=== PATIENT | male | born 1955 | race Caucasian/White ===

== ENCOUNTER 2023-06-27 12:45 | Inpatient (IN) ==
--- NOTE | 2023-06-25 09:22 | Anesthesiology Consultation ---
Date of Service June 25, 2023 Assessment & Plan (1) Encounter for pre-operative examination: Plan - [facility] discharge summary 05/24/23: "...complaints of right upper extremity weakness, left eye ptosis, right facial droop with slurring...Head CT and CT brain perfusion showed no acute findings. CTA head and neck showed persistent circulation on the left but otherwise unremarkable...MRI showed diffusion restriction w/ ADC dropout and T2 signal consistent w/ acute infarct of L thalamus...neurology evaluated patient, recommended starting DAPT...discharged to home in stable condition..." - left sided Medtronic pacemaker. Medtronic reps have advised they do not come in person for contralateral procedures. This was previously discussed with Dr. Correa who advised this is fine given that device is contralateral. - Case discussed in detail with Dr. Collins who advised patient can proceed at [facility] at planned interval from stroke given indication for procedure. - [facility] stroke and neurointervention 06/19/23: "...may hold Plavix for 5- 7 days prior to procedure, then restart CATARINO post-operatively...increased stroke risk while off antiplatelet medication." - PCP office note 06/13/23: "...hospital stay for acute thalamic CVA and right shoulder pain...residual left ptosis and facial droop...residual right sided weakness...Plavix responsiveness test and this showed his Plavix to be a little bit too strong...every other day...oxycodone for help with the shoulder pain..." - cardiology office visit 08/02/22: "...SSS/PPM and HTN...has done well since the last visit...CAD: previous stents no symptoms of CP and exercising...update echo for EF..." (cardiology office re-faxed 07/2022 note per PAT sales secretary in response to request for most recent office note). - Per assessment nurse practitioner on 06/25/2023: No known infectious disease contacts, current infectious disease symptoms in past 10 days or COVID positive test result in the past 90 days. Chart Review Chart Review: Acceptable Risk for Surgery and Patient NOT seen in Pre Admission Testing History Surgery Operation Date: 06/27/23 15:10 Proposed Procedures p Right Shoulder Incision and Drainage Retention of Implant, Possible Polyethlene and/or Glenoid Sphere Exchange - Paulino Licea MD Height/Weight Height: 5 ft 6.5 in Weight: 81.193 kg Allergies Allergy/AdvReac Type Severity Reaction Status Date / Time duloxetine [From Cymbalta] Allergy Intermediate Hives Verified 06/25/23 08:30 pregabalin [From Lyrica] Allergy Intermediate Hives Verified 06/25/23 08:30 morphine AdvReac Intermediate hallucinate Verified 06/25/23 08:30 and doesn't work Febaing-YKX-GnY Reductase AdvReac joint ache Verified 06/25/23 08:30 Inhibitor Medications Home Medications Medication Instructions Recorded Confirmed Last Taken cholecalciferol (vitamin D3) 50 50 mcg PO BID 03/29/23 06/27/23 06/26/23 20:00 mcg (2,000 unit) capsule (Vitamin D3) diltiazem HCl 180 mg capsule,24 180 mg PO QAM 03/29/23 06/27/23 06/26/23 08:00 hr,extended release famotidine 20 mg tablet 20 mg PO BID 03/29/23 06/27/23 06/27/23 08:00 magnesium 500 mg tablet 500 mg PO HS 03/29/23 06/27/23 06/26/23 08:00 metoprolol succinate 50 mg 50 mg PO QAM 03/29/23 06/27/23 06/27/23 08:00 tablet,extended release 24 hr olmesartan 20 mg tablet (Benicar) 20 mg PO HS 03/29/23 06/27/23 06/26/23 20:00 pantoprazole 40 mg tablet,delayed 40 mg PO BID 03/29/23 06/27/23 06/26/23 release ranolazine 500 mg tablet,extended 500 mg PO QAM 03/29/23 06/27/23 06/26/23 release,12 hr testosterone cypionate 200 mg/mL 1 mg subcut UD 03/29/23 06/27/23 04/13/23 intramuscular kit oxycodone 5 mg tablet 5 - 10 mg (1 - 2 x 5 mg) PO 04/19/23 06/27/23 Unknown .Q4h-6h PRN pain #30 tabs acetaminophen 500 mg tablet 1,000 mg PO Q8H PRN Pain 11/06/27/23 06/26/23 15:00 (Tylenol Extra Strength) ascorbic acid (vitamin C) 1,000 mg 1,000 mg PO DAILY 06/25/23 06/27/23 06/26/23 08:00 tablet,extended release (Vitamin C ER) cephalexin 500 mg tablet 500 mg PO QID 06/25/23 06/27/23 06/27/23 11:30 clopidogrel 75 mg tablet 75 mg PO UD 06/25/23 06/27/23 06/20/23 hydrocodone 5 mg-acetaminophen 325 1 tab PO UD PRN Pain 06/25/23 06/27/23 Unknown mg tablet sildenafil 100 mg tablet 100 mg PO DAILY PRN Erectile 06/25/23 06/27/23 Unknown Dysfunction trazodone 50 mg tablet 50 mg PO HS 06/25/23 06/27/23 Unknown zinc 1 tab PO DAILY 06/25/23 06/27/23 06/26/23 Active Medications Generic Name Dose Route Start Last Admin Trade Name Freq PRN Reason Stop Dose Admin Acetaminophen 1,000 mg 06/27/23 06:00 06/27/23 13:32 Acetaminophen 500 Mg Tab PO 06/27/23 18:00 1,000 mg PREOP SHARLA Administration Dexamethasone 8 mg 06/27/23 06:00 06/27/23 13:32 Dexamethasone 4 Mg Tab PO 06/27/23 18:00 8 mg PREOP SHARLA Administration Famotidine 20 mg 06/27/23 06:00 06/27/23 13:32 Famotidine 20 Mg Tab PO 06/27/23 18:00 Not Given PREOP SHARLA Lactated Ringer's 1,000 mls @ 60 mls/hr 06/27/23 06:00 06/27/23 13:32 Lr IV 06/27/23 22:39 Not Given .[id number] SHARLA Lactated Ringer's 1,000 mls @ 15 mls/hr 06/27/23 06:00 06/27/23 13:31 Lr IV 06/28/23 05:59 15 mls/hr .Q24H SHARLA Administration Past Medical History Medical History Stroke 05/21/23 had left sided weakness in the evening, went to [place] on 05/22/23>transferred to [facility] for 2 days>his brain/taste buds/mouth are not working together currently not working together and still some eyelid drooping currently; currently on plavix Carotid artery stenosis < 50% stenosis ICAs bilat on 07/2022 carotid doppler CAD (coronary artery disease) s/p stent LAD 2010 Spondylosis Rheumatoid arthritis History of kidney stones Barretts esophagus History of prostate cancer surgery only Hx of renal cell cancer left kidney cyst removed Hx of basal cell carcinoma nose s/p excision GERD (gastroesophageal reflux disease) controlled, stable per pt 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 Waterman; pacemaker is located in pt's left upper chest Hypertension controlled, stable per pt Hyperlipidemia Sleep apnea no device>couldn't tolerate Past Family History Family History Other No family history of adverse response to anesthesia Past Surgical History Surgical History History of reverse total replacement of right shoulder joint 04/18/23>currently infected-reason for upcoming sx. History of cardiac catheterization multiple, stent placed to LAD 2010 S/P epidural steroid injection History of back surgery total 4 lumbar surgeries (hardware intact) History of colonoscopy History of esophagogastroduodenoscopy (EGD) H/O shoulder surgery left Kidney cysts left kidney cyst removed +cancer *via lap procedure done October 2022 History of cystoscopy stone removal History of prostatectomy [place] teeth removed Hx of basal cell carcinoma excision nose area H/O nasal septoplasty History of heart artery stent 1 stent placed>2010 @ [facility] Social History Smoking Status: Never smoker Do You Dip or Chew Tobacco: No Hx Alcohol Use: Yes Alcohol type: wine alcohol intake frequency: holidays/special occasions only Hx Substance Use: No substance use type: does not use Physical Exam Vital Signs Last Vital Signs Temp 98.1 F 06/27/23 13:16 Pulse 73 06/27/23 13:16 Resp 18 06/27/23 13:16 BP 149/79 H 06/27/23 13:16 Pulse Ox 95 06/27/23 13:16 O2 Del Method Room Air 06/27/23 13:16 Lab Results Anesthesia Preop Results Results Anesthesia Widget: WBC 9.80 K/ul (4.8-10.8) 06/19/23 Hgb 15.5 g/dl (14.0-18.0) 06/19/23 Hct 48.6 % (42.0-52.0) 06/19/23 Plt 360 K/uL (130-400) 06/19/23 Na 137 mmol/L (136-145) 06/19/23 K 4.6 mmol/L (3.5-5.1) 06/19/23 Cl 101 mmol/L (98-107) 06/19/23 CO2 30 mmol/L (21-32) 06/19/23 BUN 18 mg/dl (6-23) 06/19/23 Creat 1.05 mg/dl (0.6-1.4) 06/19/23 Glucose Level 88 mg/dl (70-99(Fasting)) 06/19/23 PT 11.5 Seconds (9.0-12.0) 06/19/23 PTT 33.3 Seconds (21.0-31.0) H 06/19/23 INR 1.1 (0.9-1.1) 06/19/23 Urine Color Dark Yellow 06/19/23 Urine Appearance Clear (Clear) 06/19/23 Urine pH 5.5 (4.5-7.5) 06/19/[address] 1.030 (1.000-1.030) 06/19/23 Urine Protein Negative (Negative) 06/19/23 Urine Glucose (UA) Negative (Negative) 06/19/23 Urine Ketones Trace (Negative) H 06/19/23 Urine Blood Negative (Negative) 06/19/23 Urine Nitrite Negative (Negative) 06/19/23 Urine Bilirubin Negative (Negative) 06/19/23 Urine Urobilinogen Negative (Negative) 06/19/23 Urine Leukocyte Esterase Negative (Negative) 06/19/23 Testing Electrocardiogram Date: 06/22/23 Atrial paced rhythm with prolonged AV conduction, rate 61 bpm Early repolarization Chest X-Ray Date: 04/06/23 No acute process Echocardiogram Date: 08/11/22 EF 55% Mildly thickened, trileaflet noted and opens normally. Mild mitral regurgitation Mild tricuspid regurgitation Grade I diastolic dysfunction Stress Test Date: 11/11/20 Negative stress test based upon EKG criteria, no evidence of myocardial ischemia or infarction MPHR not reported Cervical Spine Date: 04/06/23 x-ray 1. No fractures within the cervical spine. 2. Alignment is intact throughout flexion and extension. Other Testing Pacemaker report 12/12/22 Medtronic No events RA 85% pacing Mode: AAIR DDDR Carotid doppler 08/11/22 < 50% stenosis ICAs bilat
--- NOTE | 2023-06-26 19:52 | History & Physical Report ---
Date of Service June 26, 2023 Assessment & Plan (1) Infection of prosthetic total shoulder joint: Plan: Laboratory and microbial analysis consistent with infected right reverse total shoulder arthroplasty. Treatment options discussed with the patient and the risks to proceed with surgery. Risks, benefits and alternatives to surgery including but not limited to infection, DVT, pain, stiffness, need for revision surgery, damage to blood vessels, damage to nerves, PE, , were discussed with the patient and they wish to proceed. Plan will be for right shoulder irrigation and debridement likely poly exchange, possible baseplate change as well. Surgery scheduled for June 27 at [facility] with Dr. Licea once patient has been off his Plavix for 1 week . All questions answered. Patient will follow-up postoperatively. Encounter type: initial encounter Qualified Code(s): T84.59XA - Infection and inflammatory reaction due to other internal joint prosthesis, initial encounter; Z96.619 - Presence of unspecified artificial shoulder joint History of Present Illness Chief Complaint: Right shoulder pain Primary Care Provider: Meme Gaxiola 68-year-old male with past medical history significant for CVA, CAD, RA, hypertension who presents with ongoing right shoulder pain. Patient underwent a reverse total shoulder arthroplasty about 6 weeks or so ago. Initially had done well. He then had a stroke and was placed on Plavix. Subsequently he developed increasing right shoulder pain. Workup has revealed a right shoulder infection requiring surgical management. Patient denies headaches, sweats, fevers, chills, double vision, blurred vision, cough, sore throat, dysphagia, chest pain, sob, wheezing, n/v/d/c, numbness, tingling, fatigue, urinary symptoms, mood disorders. ROS positive for right shoulder pain and stiffness. Allergies Allergy/AdvReac Type Severity Reaction Status Date / Time duloxetine [From Cymbalta] Allergy Intermediate Hives Verified 06/25/23 08:30 pregabalin [From Lyrica] Allergy Intermediate Hives Verified 06/25/23 08:30 morphine AdvReac Intermediate hallucinate Verified 06/25/23 08:30 and doesn't work [id number]-[id number] Reductase AdvReac joint ache Verified 06/25/23 08:30 Inhibitor Home Medications Medication Instructions Recorded Confirmed Type cholecalciferol (vitamin D3) 50 50 mcg PO BID 03/29/23 06/25/23 History mcg (2,000 unit) capsule (Vitamin D3) diltiazem HCl 180 mg capsule,24 180 mg PO QAM 03/29/23 06/25/23 History hr,extended release famotidine 20 mg tablet 20 mg PO BID 03/29/23 06/25/23 History magnesium 500 mg tablet 500 mg PO HS 03/29/23 06/25/23 History metoprolol succinate 50 mg 50 mg PO QAM 03/29/23 06/25/23 History tablet,extended release 24 hr olmesartan 20 mg tablet (Benicar) 20 mg PO HS 03/29/23 06/25/23 History pantoprazole 40 mg tablet,delayed 40 mg PO BID 03/29/23 06/25/23 History release ranolazine 500 mg tablet,extended 500 mg PO QAM 03/29/23 06/25/23 History release,12 hr testosterone cypionate 200 mg/mL 1 mg subcut UD 03/29/23 06/25/23 History intramuscular kit oxycodone 5 mg tablet 5 - 10 mg (1 - 2 x 5 mg) PO 04/19/23 06/25/23 Rx .Q4h-6h PRN pain #30 tabs acetaminophen 500 mg tablet 1,000 mg PO Q8H PRN Pain 06/25/23 06/25/23 History (Tylenol Extra Strength) ascorbic acid (vitamin C) 1,000 mg 1,000 mg PO DAILY 06/25/23 06/25/23 History tablet,extended release (Vitamin C ER) cephalexin 500 mg tablet 500 mg PO QID 06/25/23 06/25/23 History clopidogrel 75 mg tablet 75 mg PO UD 06/25/23 06/25/23 History hydrocodone 5 mg-acetaminophen 325 1 tab PO UD PRN Pain 06/25/23 06/25/23 History mg tablet sildenafil 100 mg tablet 100 mg PO DAILY PRN Erectile 06/25/23 06/25/23 History Dysfunction trazodone 50 mg tablet 50 mg PO HS 06/25/23 06/25/23 History zinc 1 tab PO DAILY 06/25/23 06/25/23 History Past Med/Surg History Medical History Stroke 05/21/23 had left sided weakness in the evening, went to [place] on 05/22/23>transferred to [facility] for [facility] days>his brain/taste buds/mouth are not working together currently not working together and still some eyelid drooping currently; currently on plavix Carotid artery stenosis < 50% stenosis ICAs bilat on 07/2022 carotid doppler CAD (coronary artery disease) s/p stent LAD 2010 Spondylosis Rheumatoid arthritis History of kidney stones Barretts esophagus History of prostate cancer surgery only Hx of renal cell cancer left kidney cyst removed Hx of basal cell carcinoma nose s/p excision GERD (gastroesophageal reflux disease) controlled, stable per pt 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 Waterman; pacemaker is located in pt's left upper chest Hypertension controlled, stable per pt Hyperlipidemia Sleep apnea no device>couldn't tolerate Surgical History History of reverse total replacement of right shoulder joint 04/18/23>currently infected-reason for upcoming sx. History of cardiac catheterization multiple, stent placed to LAD 2010 S/P epidural steroid injection History of back surgery total 4 lumbar surgeries (hardware intact) History of colonoscopy History of esophagogastroduodenoscopy (EGD) H/O shoulder surgery left Kidney cysts left kidney cyst removed +cancer *via lap procedure done October 2022 History of cystoscopy stone removal History of prostatectomy [place] teeth removed Hx of basal cell carcinoma excision nose area H/O nasal septoplasty History of heart artery stent 1 stent placed>2010 @ [facility] Family History Other No family history of adverse response to anesthesia Social History Smoking Status: Never smoker Second Hand Exposure: No; Do You Dip or Chew Tobacco: No; Tobacco Cessation Education Requested by Patient: No Hx Alcohol Use: Yes Alcohol type: wine Hx Substance Use: No Preferred Language: Belarusian Communication Ability: Effective Telecom Network Manager Required: No Beliefs That Will Affect Care: None Current Living Situation: Spouse Other Information That Helps Us Care for You: No Feels Safe at Home: Yes Safety Concerns: Feels Safe At This Time Assistive Devices: Glasses Assistive Devices Comment: reading glasses prn Review of Systems All systems reviewed & are unremarkable except as noted in HPI & below Physical Exam Constitutional: well developed and well nourished; no acute distress Eyes: PERRL, conjunctivae normal, anicteric sclerae ENMT: external ear and nose normal, oropharynx normal Neck: trachea midline, no thyromegaly Respiratory: normal respiratory effort; no respiratory distress Cardiovascular: Rate/Rhythm: regular rate and regular rhythm Musculoskeletal: Right shoulder: Well-healed surgical scar with no erythema or drainage. There is mild to moderate swelling. Mild warmth. Active painful range of motion. Patient with 90 degrees of forward flexion and abduction actively. Has good isometrics with string testing. Skin: no rashes, warm and dry Neurologic: patellar DTR's 2+ bilat, sensation intact Psychiatric: A+Ox3, euthymic affect Results & Data Laboratory Results Labs demonstrated sed rate 62, normal white count, CRP of 13.8. Right shoulder aspiration revealed a cell count of 49,000 with 94% polys. Synovasure analysis demonstrated positive neutrophil elastase. The Synovasure microbial ID panel positive for P. acnes culture growing gram-positive rods which would be consistent with P acnes. Diagnostic Findings Right shoulder radiographs demonstrate stable alignment reverse total shoulder arthroplasty without evidence of loosening.
[~2023-06-27 12:45] MED LIST: ACETAMINOPHEN 500 MG TAB PO SCH; BUPIVACAINE 0.5 % 5 MG/1 ML PF 10ML VIAL ONE; DEXAMETHASONE SOD INJ 4 MG/ML VIAL ONE; FAMOTIDINE 20 MG TAB PO SCH; General Order Problem(s) SCH; LIDOCAINE 2% 2 ML VIAL/AMP(20MG/ML) INFIL ONE; LR 15ML/HR IV SCH; LR 60ML/HR IV SCH; MIDAZOLAM HCL 1 MG/ML 2ML VIAL ONE; ONDANSETRON INJ 2 MG/ML 2 ML VIAL ONE; PROPOFOL IV EMULSION 10 MG/ML 20 ML VIAL IV ONE; ROCURONIUM BROMIDE 10 MG/ML 5 ML VIAL IV ONE; SUGAMMADEX SODIUM 200 MG/2 ML VIAL IV ONE; TRANEXAMIC ACID 1,000 MG **IV Intra-op IV SCH; TRANEXAMIC ACID 1,000 MG **IV Pre-op IV SCH; VANCOMYCIN HCL 1,250 MG in SODIUM CHLORIDE 0.9% 250 ML IV SCH; cefTRIAXone SODIUM 1,000 MG in DEXTROSE 5 % MINI-B 50 ML IV SCH; dexAMETHasone 4 MG TAB PO SCH; fentaNYL citrate PF 100 MCG/2 ML VIAL ONE
[2023-06-27] MEDS ORDERED: ceFAZolin 330 MG/ML 1 GM VIAL ONE ×2 (13:52→15:33)
--- NOTE | 2023-06-27 13:55 | History & Physical Bridge Note ---
Date of Service June 27, 2023 History & Physical Bridge Note I have examined the patient, reviewed the History & Physical and in the interval since the performance of the History & Physical I have noted the following changes of clinical significance: no changes noted
[2023-06-27] MEDS: ALLERGY Noted to ORDERED Medication SCH ×3 (14:26→18:13)
[2023-06-27] MEDS ORDERED: VANCOMYCIN HCL 1000MG/20ML VIAL ONE (16:37)
--- NOTE | 2023-06-27 17:36 | Operative Report ---
Post Operative Report Pre & Post Diagnosis Operation Date: 06/27/23 15:10 Pre-Op Diagnosis: Right Shoulder Acute Infection of reversed Total Shoulder Arthroplasty Post-Op Diagnosis: Right Shoulder acute deep Infection of reversed Total Shoulder Arthroplasty I identified the patient and participated in the time-out.: Yes Procedure Operation Date: 06/27/23 15:10 Actual Procedures p Right Shoulder Incision and Drainage, Retention of Implant humeral stem and glenoid baseplate with humeral Polyethlene and metal humeral tray and Glenoid Sphere Exchange, with placement of Stimulan vancomycin antibiotic beads Paulino Licea MD Surgeon Paulino Licea MD Calender Machine Operator Helper Ren ABEBE Estimated Blood Loss 250 Findings Consistent with Post-Op Diagnosis Specimens multiple including swab culture ,soft tissue cultures Drains 2 Hemovac Anesthesia Type General Regional Complications none Disposition Disposition: Recovery Room Indications 68-year-old male who had a recent reverse total shoulder replacement by myself approximately 2 months ago who in the postoperative period was diagnosed with a stroke that was treated with Plavix. Patient was doing excellent 6 weeks postop and started therapy and developed acute swelling and pain in his shoulder consistent with a hemarthrosis which went on to become infected. Inflammatory parameters ESR CRP were elevated and ultrasound guided shoulder aspiration and Synovasure testing demonstrated positive alpha defense and, positive P acnes antigen, and Gram stain positive for gram-positive bacillus consistent with P acnes. Description of Procedure Patient was placed under regional block and general anesthetic and positioned on the operating room table in a 40 degree beachchair position with a towel roll Under the medial border of his right scapula. all extremities were padded. SCDs were placed. Right shoulder exam demonstrated a stable implant with benign incision with no erythema or drainage mild swelling only. Patient had ceftriaxone 1 g IV preop and right shoulder was sterilely prepped and draped with ChloraPrep in usual sterile fashion. An anterior incision was made through his prior scar. Skin was incised sharply through the subcutaneous tissues which showed no infection. The scarred subcutaneous tissue elevated off the fascia. The deltopectoral interval scar was released and the cephalic vein was retracted laterally with the deltoid the pectoralis was retracted medially. Conjoined tendon was identified and retracted medially. No signs of infection were identified until the subscapularis tendon was identified and the suture material which demonstrated failed subscapularis tendon repair with inflammatory tissue around the suture material and some purulent type soft tissue within the joint around the implant consistent with a deep infection. Soft tissue samples were obtained around the implant for culture. The shoulder was dislocated using a bone hook. A tuning fork was used to remove the metal tray of the humerus along with the polyethylene. The membrane interface underlying the humeral tray was sent for culture. Retractors were placed and the retentive screw was loosened and the glenoid sphere extraction device was utilized to remove the glenoid sphere uneventfully. There was some purulent appearing membrane between the glenoid sphere and the baseplate which was cultured as well. At this point multiple liters of antibiotic saline solution with Ancef were utilized with pulsatile lavage. Rongeur was used to debride any material that was suspicious. all of the nonabsorbable suture material was excised. Betadine scrub brush was used to scrub the metallic implants. Further irrigation was performed for a total of 12 L using Ancef for pulsatile lavage solution. All new instruments were utilized after this point. All staff placed on new gowns and gloves and the shoulder was reprepped and draped. Various trials were utilized at this time and the decision was to upsize the glenoid sphere to a 42 mm sphere and continue with a +0 high offset tray and a 42 x 9 reversed insert based on trialing. The trials were removed and the implants were then irrigated with xperience irrigation. Retractors were placed and the 42 x 25 mm glenoid sphere was impacted into position with a good tight fit and the security screw was tightened. Glenoid sphere was assessed for stability. The +0 high offset tray was impacted onto the stem and the 42+9 mm reversed insert was placed. Humerus was reduced to the glenoid sphere. Shoulder was stable through full range of motion. Range of motion was 150 degrees forward elevation 100 degrees abduction external rotation 60 degrees. Further irrigation performed with the xperience. 1 g vancomycin antibiotic beads were placed around the implant deep to the deltoid closure. 2 Hemovac drains were placed deep to the deltopectoral closure. Deltoid and pectoralis were closed with [id number] #1 Vicryl antibiotic resistance sutures. The subcutaneous tissue closed with [id number] 2-0 Vicryl antibiotic resistance suture. The skin was closed with ana. Sterile dressings were applied. Ren ABEBE is left versus any was integral part in all aspects of the procedure. He assisted in prepping draping arm positioning retraction instrument management form the wound closure and will participate in postop care patient as well. I attest to the content of the Intraoperative Record and any orders documented therein. Any exceptions are noted below.
--- NOTE | 2023-06-27 17:48 | Anesthesiology Progress Note ---
Date of Service June 27, 2023 Anesthesia Post Procedure Vital Signs Vital Signs: Temp Pulse Pulse Resp BP Pulse Ox O2 Del Method 06/27/23 17:40 61 19 137/71 97 Oxymask 06/27/23 17:30 61 22 141/70 H 98 Oxymask 06/27/23 17:21 36 C L 68 16 157/74 H 97 Oxymask 06/27/23 13:16 36.7 C 73 18 149/79 H 95 Room Air O2 Flow Rate 06/27/23 17:40 7 06/27/23 17:30 7 06/27/23 17:21 7 06/27/23 13:16 Transfer of Care Handoff Completed per policy Notes Mental Status: alert / awake / arousable Patient Amnestic to Procedure: Yes Nausea / Vomiting: adequately controlled Pain: adequately controlled Airway Patency, RR, SpO2: stable & adequate BP & HR: stable & adequate Hydration State: stable & adequate Anesthetic Complications: no major complications apparent and Pt Satisfied with anesthetic care
[2023-06-27] MEDS ORDERED: SODIUM CHLORIDE 0.9% 1,000 ML IV SCH (18:25)
[2023-06-27] MEDS ORDERED: HYDROmorphone INJ 0.5 MG/0.5 ML SYR IV PRN (18:25)
[2023-06-27] MEDS ORDERED: ONDANSETRON INJ 2 MG/ML 2 ML VIAL IV PRN (18:25)
[2023-06-27] MEDS ORDERED: NALOXONE HCL 0.4 MG/1 ML VIAL/CARP IV PRN (18:25)
[2023-06-27] MEDS ORDERED: METOCLOPRAMIDE HCL INJ 5 MG/ML 2 ML VIAL IV PRN (18:25)
[2023-06-27] MEDS ORDERED: bisacodyL 10 MG SUPP PR PRN (18:25)
[2023-06-27] MEDS ORDERED: MAGNESIUM HYDROXIDE SUSP 30 ML UDC PO PRN (18:25)
--- NOTE | 2023-06-27 19:03 | XRay Report ---
RIGHT SHOULDER 2 VIEWS CLINICAL HISTORY: Postoperative examination. FINDINGS: 2 portable views of the right shoulder are compared to study dated 04/18/2023. The skeletal structures are osteopenic. A right shoulder arthroplasty is in near anatomic alignment. Antibiotic im plants are in place. No acute fracture is seen. Skin clips, a surgical drain, subcutaneous gas, and s oft tissue swelling overlying the right shoulder are expected postsurgical changes. There is producti ve degenerative change at the acromioclavicular joint. The imaged right lung parenchyma appears clear . IMPRESSION: Expected postsurgical findings status post right shoulder surgery. No acute fracture is s een. Electronically signed by: Corona Laurent M.D. 06/27/2023 7:02 PM
[2023-06-27] MEDS: SENNA 8.6 MG TAB PO SCH (20:09)
[2023-06-27] MEDS: PANTOprazole 40 MG TAB PO SCH (20:11)
[2023-06-27] MEDS: DOCUSATE SODIUM 100 MG CAP PO SCH (20:11)
[2023-06-27] MEDS: FAMOTIDINE 20 MG TAB PO SCH (20:12)
[2023-06-27] MEDS: LOSARTAN POTASSIUM 50 MG TAB PO SCH (20:12)
[2023-06-27] MEDS: CHOLECALCIFEROL 1,000 UNITS 25 MCG TAB PO SCH (20:12)
[2023-06-27] MEDS: MAGNESIUM OXIDE 400 MG TAB PO SCH (20:13)
[2023-06-27 20:40] LABS: Hematocrit (blood only) 44.4 % (42.0-52.0); Hemoglobin 13.9 g/dl (14.0-18.0); Mean Corpuscular Hemoglobin 26.3 pg (25.0-34.0); Mean Corpuscular Hgb Conc 31.3 g/dL (32.0-36.0); Mean Corpuscular Volume 83.9 fL (80.0-100.0); Mean Platelet Volume 8.9 fL (9.4-12.4); Platelet Count 389 K/uL (130-400); RDW Coefficient of Variation 15.9 % (11.5-14.5); RDW Standard Deviation 48.7 fL (36.4-46.3); Red Blood Count 5.29 M/uL (4.70-6.10); White Blood Count 13.02 K/ul (4.8-10.8)
[2023-06-27 20:54] LABS: Albumin Globulin Ratio 1.1 (0.9-2); Albumin Level 3.6 gm/dl (3.4-5.0); BUN Creatinine Ratio 17.5 (10-20); Bilirubin,Total 0.7 mg/dl (0.2-1.0); C Reactive Protein 2.85 mg/dl (0-0.5); Est GFR (African American) 86.1 ml/min; Est GFR (Non-African American) 74.3 ml/min; Globulin 3.4 gm/dl (2.5-4.0); Potassium 4.2 mmol/L (3.5-5.1)
[2023-06-27 21:04] LABS: Basophils # (auto) 0.03 K/uL (0.00-0.20); Basophils % (auto) 0.2 %; Immature Granulocytes # (auto) 0.11 K/uL (0.01-0.20); Immature Granulocytes % (auto) 0.8 %; Lymphocytes # (auto) 0.69 K/uL (1.20-3.40); Lymphocytes % (auto) 5.3 %; Monocytes # (auto) 0.05 K/uL (0.11-0.59); Monocytes % (auto) 0.4 %; Neutrophils # (auto) 12.14 K/uL (1.40-6.50); Neutrophils % (auto) 93.3 %
[2023-06-27] MEDS: traZODone HCL 50 MG TAB PO SCH (21:46)
[2023-06-27] MEDS: ACETAMINOPHEN 500 MG TAB PO SCH (21:46)
--- NOTE | 2023-06-27 23:17 | Hospitalist Consultation ---
Date of Consultation June 27, 2023 Assessment & Plan (1) Infection of prosthetic total shoulder joint: Patient is s/p incision and drainage with poly exchange and placement of vancomycin beads. Surgery well tolerated. Patient doing well. Afebrile, HD stable, NV intact. He has received Cefazolin x 2 doses and Ceftriaxone thus far. Infectious Disease consultation placed by primary team to assist with antibiotic management. -Continue Ceftriaxone for now -Post operative plan per primary team (2) Stroke: Patient with acute ischemic stroke on 05/21/23. He reports some very mild residual deficit in his voice. -Plavix to be restarted tomorrow if ok with surgical team -Patient is statin-intolerant (3) CAD (coronary artery disease): Patient with CAD s/p stent placement in 2010. He denies chest pain -Plavix to be resumed in AM -Continue Metoprolol, Olmesartan and Ranolazine (4) Hypertension: Blood pressure acceptable -Pain control -Continue Olmesartan -Monitor (5) GERD (gastroesophageal reflux disease): Chronic. Stable -Continue Protonix -Continue Famotidine History of Present Illness Reason for Consultation: medication management Attending Physician: Paulino Licea MD History of Present Illness Urban Bright is a 68yo male s/p right shoulder arthroplasty performed by Dr. Licea on 04/18/23. Patient's initial surgery was well tolerated with no complications identified. He suffered an acute ischemic stroke on 05/21/23 and was started on Plavix, after which he began to develop increased pain and stiffness in the right shoulder. Patient was found to have right shoulder infection and was admitted on 06/26/23 for incision and drainage. He was taken to the OR today 06/27/23 and had a right shoulder incision and drainage with exchange and placement of vancomycin beads. He was seen in 321-1. Resting comfortably. No complaints. Still with numbness from the surgery - no pain at this time. No nausea. He tolerated dinner without difficulty. No additional complaints. He denies chest pain, SOB or palpitations. Allergies Allergy/AdvReac Type Severity Reaction Status Date / Time duloxetine [From Cymbalta] Allergy Intermediate Hives Verified 06/25/23 08:30 pregabalin [From Lyrica] Allergy Intermediate Hives Verified 06/25/23 08:30 morphine AdvReac Intermediate hallucinate Verified 06/25/23 08:30 and doesn't work [id number]-MHC-IoY Reductase AdvReac joint ache Verified 06/25/23 08:30 Inhibitor Home Medications Medication Instructions Recorded Confirmed Type cholecalciferol (vitamin D3) 50 50 mcg PO BID 03/29/23 06/27/23 History mcg (2,000 unit) capsule (Vitamin D3) diltiazem HCl 180 mg capsule,24 180 mg PO QAM 03/29/23 06/27/23 History hr,extended release famotidine 20 mg tablet 20 mg PO BID 03/29/23 06/27/23 History magnesium 500 mg tablet 500 mg PO HS 03/29/23 06/27/23 History metoprolol succinate 50 mg 50 mg PO QAM 03/29/23 06/27/23 History tablet,extended release 24 hr olmesartan 20 mg tablet (Benicar) 20 mg PO HS 03/29/23 06/27/23 History pantoprazole 40 mg tablet,delayed 40 mg PO BID 03/29/23 06/27/23 History release ranolazine 500 mg tablet,extended 500 mg PO QAM 03/29/23 06/27/23 History release,12 hr testosterone cypionate 200 mg/mL 1 mg subcut UD 03/29/23 06/27/23 History intramuscular kit oxycodone 5 mg tablet 5 - 10 mg (1 - 2 x 5 mg) PO 04/19/23 06/27/23 Rx .Q4h-6h PRN pain #30 tabs acetaminophen 500 mg tablet 1,000 mg PO Q8H PRN Pain 06/25/23 06/27/23 History (Tylenol Extra Strength) ascorbic acid (vitamin C) 1,000 mg 1,000 mg PO DAILY 06/25/23 06/27/23 History tablet,extended release (Vitamin C ER) cephalexin 500 mg tablet 500 mg PO QID 06/25/23 06/27/23 History clopidogrel 75 mg tablet 75 mg PO UD 06/25/23 06/27/23 History hydrocodone 5 mg-acetaminophen 325 1 tab PO UD PRN Pain 06/25/23 06/27/23 History mg tablet sildenafil 100 mg tablet 100 mg PO DAILY PRN Erectile 06/25/23 06/27/23 History Dysfunction trazodone 50 mg tablet 50 mg PO HS 06/25/23 06/27/23 History zinc 1 tab PO DAILY 06/25/23 06/27/23 History Patient History Medical History (Updated 06/28/23 @ 01:46 by Laura Cox DO) Stroke 05/21/23 had left sided weakness in the evening, went to [place] on 05/22/23>transferred to [facility] for 2 days>his brain/taste buds/mouth are not working together currently not working together and still some eyelid drooping currently; currently on plavix Carotid artery stenosis < 50% stenosis ICAs bilat on 07/2022 carotid doppler CAD (coronary artery disease) s/p stent LAD 2010 Spondylosis Rheumatoid arthritis History of kidney stones Barretts esophagus History of prostate cancer surgery only Hx of renal cell cancer left kidney cyst removed Hx of basal cell carcinoma nose s/p excision GERD (gastroesophageal reflux disease) controlled, stable per pt 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 Waterman; pacemaker is located in pt's left upper chest Hypertension controlled, stable per pt Hyperlipidemia Sleep apnea no device>couldn't tolerate Surgical History History of reverse total replacement of right shoulder joint 04/18/23>currently infected-reason for upcoming sx. History of cardiac catheterization multiple, stent placed to LAD 2010 S/P epidural steroid injection History of back surgery total 4 lumbar surgeries (hardware intact) History of colonoscopy History of esophagogastroduodenoscopy (EGD) H/O shoulder surgery left Kidney cysts left kidney cyst removed +cancer *via lap procedure done October 2022 History of cystoscopy stone removal History of prostatectomy [place] teeth removed Hx of basal cell carcinoma excision nose area H/O nasal septoplasty History of heart artery stent 1 stent placed>2010 @ [facility] Family History Other No family history of adverse response to anesthesia Social History Smoking Status: Never smoker Second Hand Exposure: No; Do You Dip or Chew Tobacco: No; Tobacco Cessation Education Requested by Patient: No Hx Alcohol Use: Yes Alcohol type: wine Hx Substance Use: No Preferred Language: Khmer Communication Ability: Effective Associate Professor Of Biostatistics Required: No Beliefs That Will Affect Care: None Current Living Situation: Spouse Other Information That Helps Us Care for You: No Feels Safe at Home: Yes Safety Concerns: Feels Safe At This Time Assistive Devices: Glasses Assistive Devices Comment: reading glasses prn Review of Systems Review of Systems: All systems reviewed & are unremarkable except as noted in HPI & below Physical Exam Physical Exam: General: patient resting comfortably, NAD, non-toxic in appearance, AA&O x 4 Skin: warm, dry, intact, no rashes or lesions HEENT: NC/AT, PERRL, EOMI, anicteric sclera, conjunctiva without injection, external ear normal to inspection and nontender, nares patent, moist mucus membranes, dentition intact, no oropharyngeal lesions, neck supple, trachea midline, no LAD, no thyromegaly, no JVD Heart: +S1/S2, regular, no m/r/g Lungs: equal air entry bilaterally, no rales/rhonchi/wheezes Abd: +BS, soft, NT/ND, no masses/organomegaly/ascites Ext: warm, 2+ pulses in UE/LE bilaterally, no clubbing/cyanosis or edema, right shoulder immobilizer in place, drain with serosanguinous output, mobility and sensation intact Neuro: nonfocal, patient AA&O x 4, speech intact, no facial droop, moving all extremities on command with equal strength 5/5 Results & Data Results & Data Vital Signs (Past 12 Hours) Vital Signs Temp Pulse Pulse Pulse Resp BP BP 06/27/23 21:30 36.6 C 67 16 130/68 06/27/23 20:30 36.3 C L 71 16 143/70 H 06/27/23 19:30 36.5 C 68 16 134/78 06/27/23 19:00 36.5 C 62 16 150/73 H 06/27/23 18:36 06/27/23 18:26 36.4 C L 61 16 147/73 H 06/27/23 18:00 61 17 136/68 06/27/23 17:50 36.5 C 61 18 132/72 06/27/23 17:40 61 19 137/71 06/27/23 17:30 61 22 141/70 H 06/27/23 17:21 36 C L 68 16 157/74 H 06/27/23 13:16 36.7 C 73 18 149/79 H Pulse Ox O2 Del Method O2 Flow Rate 06/27/23 21:30 95 Room Air 06/27/23 20:30 96 Room Air 06/27/23 19:30 96 Room Air 06/27/23 19:00 94 Room Air 06/27/23 18:36 Room Air 06/27/23 18:26 95 Room Air 06/27/23 18:00 93 Room Air 06/27/23 17:50 96 Oxymask 3 06/27/23 17:40 97 Oxymask 7 06/27/23 17:30 98 Oxymask 7 06/27/23 17:21 97 Oxymask 7 06/27/23 13:16 95 Room Air Laboratory Results Laboratory Results WBC 13.02 K/ul (4.8-10.8) H 06/27/23 20:16 RBC 5.29 M/uL (4.70-6.10) 06/27/23 20:16 Hgb 13.9 g/dl (14.0-18.0) L 06/27/23 20:16 Hct 44.4 % (42.0-52.0) 06/27/23 20:16 MCV 83.9 fL (80.0-100.0) 06/27/23 20:16 MCH 26.3 pg (25.0-34.0) 06/27/23 20:16 MCHC 31.3 g/dL (32.0-36.0) L 06/27/23 20:16 RDW Std Deviation 48.7 fL (36.4-46.3) H 06/27/23 20:16 RDW Coeff of Adelaida 15.9 % (11.5-14.5) H 06/27/23 20:16 Plt Count 389 K/uL (130-400) 06/27/23 20:16 MPV 8.9 fL (9.4-12.4) L 06/27/23 20:16 Immature Gran % (Auto) 0.8 % 06/27/23 20:16 Neut % (Auto) 93.3 % 06/27/23 20:16 Lymph % (Auto) 5.3 % 06/27/23 20:16 [place] % (Auto) 0.4 % 06/27/23 20:16 Eos % (Auto) 0.0 % 06/27/23 20:16 Baso % (Auto) 0.2 % 06/27/23 20:16 Neut # (Auto) 12.14 K/uL (1.40-6.50) H 06/27/23 20:16 Lymph # (Auto) 0.69 K/uL (1.20-3.40) L 06/27/23 20:16 [place] # (Auto) 0.05 K/uL (0.11-0.59) L 06/27/23 20:16 Eos # (Auto) 0.00 K/uL (0.00-0.50) 06/27/23 20:16 Baso # (Auto) 0.03 K/uL (0.00-0.20) 06/27/23 20:16 Immature Gran # (Auto) 0.11 K/uL (0.01-0.20) 06/27/23 20:16 ESR 74 mm/hr (0-20) H 06/27/23 20:16 Sodium 136 mmol/L (136-145) 06/27/23 20:16 Potassium 4.2 mmol/L (3.5-5.1) 06/27/23 20:16 Chloride 102 mmol/L (98-107) 06/27/23 20:16 Carbon Dioxide 25 mmol/L (21-32) 06/27/23 20:16 Anion Gap 9 (3-11) 06/27/23 20:16 BUN 18 mg/dl (6-23) 06/27/23 20:16 Creatinine 1.03 mg/dl (0.6-1.4) 06/27/23 20:16 Est Cr Clr Drug Dosing 70.0 ml/min 06/27/23 20:16 Est GFR ( Amer) 86.1 ml/min 06/27/23 20:16 Est GFR (Non-Af Amer) 74.3 ml/min 06/27/23 20:16 BUN/Creatinine Ratio 17.5 (10-20) 06/27/23 20:16 Glucose 198 mg/dl (70-99(Fasting)) H 06/27/23 20:16 Calcium 9.0 mg/dl (8.6-10.3) 06/27/23 20:16 Total Bilirubin 0.7 mg/dl (0.2-1.0) 06/27/23 20:16 AST 25 U/L (13-39) 06/27/23 20:16 ALT 62 U/L (7-52) H 06/27/23 20:16 Alkaline Phosphatase 86 U/L (34-104) 06/27/23 20:16 C-Reactive Protein 2.85 mg/dl (0-0.5) H 06/27/23 20:16 Total Protein 7.0 gm/dl (6.0-8.3) 06/27/23 20:16 Albumin 3.6 gm/dl (3.4-5.0) 06/27/23 20:16 Globulin 3.4 gm/dl (2.5-4.0) 06/27/23 20:16 Albumin/Globulin Ratio 1.1 (0.9-2) 06/27/23 20:16 Procalcitonin < 0.05 ng/ml (0-0.5) 06/27/23 20:16 Impressions Shoulder X-Ray 06/27/23 17:29 RIGHT SHOULDER 2 VIEWS CLINICAL HISTORY: Postoperative examination. FINDINGS: 2 portable views of the right shoulder are compared to study dated 04/18/2023. The skeletal structures are osteopenic. A right shoulder arthroplasty is in near anatomic alignment. Antibiotic implants are in place. No acute fracture is seen. Skin clips, a surgical drain, subcutaneous gas, and soft tissue swelling overlying the right shoulder are expected postsurgical changes. There is productive degenerative change at the acromioclavicular joint. The imaged right lung parenchyma appears clear. IMPRESSION: Expected postsurgical findings status post right shoulder surgery. No acute fracture is seen. Electronically signed by: Corona Laurent M.D. 06/27/2023 7:02 PM PG Care Time/CCT Total # of Minutes Spent Total Time Spent with Patient: Total time spent is greater than 50% in coordination of care (as documented) at patient's floor/unit and/or counseling patient: Coding Level of Care Code 68520 IN/OBS CONSULT LVL 3,45M Diagnoses Infection of prosthetic total shoulder joint, initial encounter T84.59XA; Z96.619 Encounter type: initial encounter Stroke I63.9 CAD (coronary artery disease) I25.10 Hypertension I10 GERD (gastroesophageal reflux disease) K21.9 (1) Infection of prosthetic total shoulder joint Encounter type: initial encounter Qualified Code(s): T84.59XA - Infection and inflammatory reaction due to other internal joint prosthesis, initial encounter; Z96.619 - Presence of unspecified artificial shoulder joint
[2023-06-28] MEDS: oxyCODONE HCL IR 5 MG TAB (IMMEDIATE RELEASE) PO PRN ×2 (01:15→20:37)
[2023-06-28] MEDS: ACETAMINOPHEN 500 MG TAB PO SCH ×3 (05:48→22:12)
[2023-06-28] MEDS ORDERED: LR 15ML/HR IV SCH (06:00)
[2023-06-28 06:22] LABS: Hematocrit (blood only) 41.1 % (42.0-52.0); Mean Corpuscular Hemoglobin 26.5 pg (25.0-34.0); Mean Corpuscular Hgb Conc 31.6 g/dL (32.0-36.0); Mean Corpuscular Volume 83.7 fL (80.0-100.0); Mean Platelet Volume 8.7 fL (9.4-12.4); Platelet Count 392 K/uL (130-400); RDW Coefficient of Variation 15.8 % (11.5-14.5); RDW Standard Deviation 48.3 fL (36.4-46.3); Red Blood Count 4.91 M/uL (4.70-6.10); White Blood Count 13.06 K/ul (4.8-10.8)
[2023-06-28 06:38] LABS: BUN Creatinine Ratio 22.3 (10-20); Calcium 9.1 mg/dl (8.6-10.3); Creatinine Clr Calc Pharmacy 76.7 ml/min; Est GFR (African American) 96.2 ml/min; Potassium 4.7 mmol/L (3.5-5.1)
[2023-06-28 06:44] LABS: Basophils # (auto) 0.02 K/uL (0.00-0.20); Basophils % (auto) 0.2 %; Immature Granulocytes # (auto) 0.11 K/uL (0.01-0.20); Immature Granulocytes % (auto) 0.8 %; Lymphocytes # (auto) 0.87 K/uL (1.20-3.40); Lymphocytes % (auto) 6.7 %; Monocytes # (auto) 0.26 K/uL (0.11-0.59); Neutrophils % (auto) 90.3 %; RBC Morphology Unremarkable
--- NOTE | 2023-06-28 07:28 | Orthopedic Progress Note ---
Date of Service June 28, 2023 Assessment & Plan (1) Infection of prosthetic total shoulder joint: Plan: Postop day #1 right reverse total shoulder I&D with glenosphere and poly exchange. -Continue IV antibiotics. Placed on IV ceftriaxone pending ID recommendations. ID consult placed. Preop cultures growing gram-positive rods. Synovasure microbial ID panel positive for P acnes. Preop Synovasure neutrophil elastase positive. Synovial fluid white count of 49,000 preop. No shoulder range of motion at this time. Continue with sling immobilization. May do elbow/hand/finger motion, pendulums. Patient was placed on Keflex 1 week ago and has been on this prior to surgery. OR cultures are pending. Admission and Anticipated Discharge Date Admission Date: June 27, 2023 Subjective Postop day 1 I&D right shoulder. Patient is doing well this morning minimal pain. No other complaints. Denies chest pain, shortness of breath, nausea/vomiting diarrhea, fevers or chills. Review of Systems Review of Systems: All systems reviewed & are unremarkable except as noted in Subjective Physical Exam Physical Exam: Right shoulder: Dressing is clean, dry, intact. Fingers are mobile with good telephone switchboard operator strength. Hemovac on suction. Distal neurovascular status and sensation is grossly intact. Constitutional: WD/WN, vitals as above Results & Data Vital Signs (Past 12 Hours) Vital Signs Temp Pulse Resp BP Pulse Ox O2 Del Method 06/28/23 07:21 36.6 C 65 18 136/71 95 Room Air 06/28/23 04:19 36.5 C 69 16 144/73 H 95 Room Air 06/28/23 01:00 36.4 C L 64 16 128/72 97 Room Air 06/27/23 21:30 36.6 C 67 16 130/68 95 Room Air 06/27/23 20:30 36.3 C L 71 16 143/70 H 96 Room Air 06/27/23 19:30 36.5 C 68 16 134/78 96 Room Air (1) Infection of prosthetic total shoulder joint Encounter type: initial encounter Qualified Code(s): T84.59XA - Infection and inflammatory reaction due to other internal joint prosthesis, initial encounter; Z96.619 - Presence of unspecified artificial shoulder joint
--- NOTE | 2023-06-28 08:22 | Hospitalist Progress Note ---
Date of Service June 28, 2023 Assessment & Plan (1) Infection of prosthetic total shoulder joint: Plan: S/p incision and drainage with poly exchange and placement of vancomycin beads with Dr Licea. EBL 250cc Cefazolin x 2 juan antonio-operatively WBC elevation likely from surgery/infection, afebrile Continues on Ceftriaxone for now Hgb 13.9--> 13.0, acute blood loss anemia from surgery/drain, also dilutional aspect from IVF. Asymptomatic Per ortho notes -- preop cultures growing gram-positive rods. Synovasure microbial ID panel positive for P acnes. Preop Synovasure neutrophil elastase positive. Synovial fluid white count of 49,000 preop * Has been on keflex for about a week prior to surgery OR cx pending -- GS moderate WBC, no organisms Blood cultures pending ID consult pending Pain control/bowel regimen/DVT proph per primary service Plavix resumed this morning Monitor labs in AM (2) Stroke: Plan: Patient with acute ischemic stroke on 05/21/23, treated as [facility] -He reports some very mild residual deficit in his voice., also reports some R UE weakness at some points but difficult for exam w/ recent surgery but alert/oriented/no facial droop or deficit elsewhere Plavix resumed this morning Of note, patient statin-intolerant (3) CAD (coronary artery disease): Plan: Patient with CAD s/p stent placement in 2010. He denies chest pain Plavix resumed AM 06/28 Continues on metoprolol, olmesartan, ranolazine EKG w/ CP (4) Hypertension: Plan: Stable -- BP 136/71 Continues on metoprolol, olmesartan, diltiazem (5) GERD (gastroesophageal reflux disease): Plan: Chronic. Stable No issues reported Remains on protonix, pepcid Plan Thank you for allowing hospitalist service to participate in the care of Mr Bright. Hospitalist service will follow along. Please call with any questions/concerns Admission and Anticipated Discharge Date Admission Date: June 27, 2023 Supervising Physician Co-Signing Physician Notes The patient was not seen by me. The chart was reviewed. Case discussed with ANDRAE Malik. Agree with assessment and plan Subjective Evaluated this morning. Doing well, ambulating in the room. Pain controlled. Awaiting ID consultation, continues on Rocephin for now. Discussed his prior stroke, had been evaluated at [facility], on plavix. He thinks possibly from a clot from his shoulder but unclear. Unable to assess weakness really w/ right arm due to surgery but has some issues w/ word finding at times at baseline. No new symptoms/increased symptoms. His plavix was resumed this morning. Discussed to alert of any symptoms for re-eval. No fever/chills, chest pain, shortness of breath, abdominal pain, nausea reported at present. Questions/concerns addressed. Physical Exam 2 Physical Exam: General: WD/WN male dressed and ambulating in the room, NAD HEENT: head atraumatic, normocephalic, mmm, trachea midline Resp: CTA, no w/c/r, on room air CV: RRR, no significant mrg, no pitting edema/calf tenderness, pulses palpable GI: +BS, soft/NT : no lozano MSK/Neuro: dressing c/d/i to RIGHT shoulder, fingers mobile, sensation intact, pulses palpable, sling in place no slurred speech/facial droop Psych: AOx3, cooperative and pleasant with exam Skin: no obvious rashes/lesions Results & Data Results & Data Vital Signs (Past 12 Hours) Vital Signs Temp Pulse Resp BP Pulse Ox O2 Del Method 06/28/23 07:21 36.6 C 65 18 136/71 95 Room Air 06/28/23 04:19 36.5 C 69 16 144/73 H 95 Room Air 06/28/23 01:00 36.4 C L 64 16 128/72 97 Room Air 06/27/23 21:30 36.6 C 67 16 130/68 95 Room Air 06/27/23 20:30 36.3 C L 71 16 143/70 H 96 Room Air Laboratory Results 06/28/23 05:59 06/28/23 05:59 PG Care Time/CCT Total # of Minutes Spent Total Time Spent with Patient: Total time spent is greater than 50% in coordination of care (as documented) at patient's floor/unit and/or counseling patient: Coding Level of Care Code 29141 SUB INP/OBS CARE 2/35MIN Diagnoses Infection of prosthetic total shoulder joint, initial encounter T84.59XA; Z96.619 Encounter type: initial encounter Stroke I63.9 CAD (coronary artery disease) I25.10 Hypertension I10 GERD (gastroesophageal reflux disease) K21.9 (1) Infection of prosthetic total shoulder joint Encounter type: initial encounter Qualified Code(s): T84.59XA - Infection and inflammatory reaction due to other internal joint prosthesis, initial encounter; Z96.619 - Presence of unspecified artificial shoulder joint
[2023-06-28] MEDS: RANOLAZINE 500 MG ER TAB PO SCH (08:46)
[2023-06-28] MEDS: DOCUSATE SODIUM 100 MG CAP PO SCH ×2 (08:46→20:35)
[2023-06-28] MEDS: dilTIAZem HCL 180 MG CAPCR PO SCH (08:46)
[2023-06-28] MEDS: CLOPIDOGREL BISULFATE 75 MG TAB PO SCH (08:46)
[2023-06-28] MEDS: MULTIVITAMIN TAB PO SCH (08:46)
[2023-06-28] MEDS: ASCORBIC ACID 500 MG TAB PO SCH (08:46)
[2023-06-28] MEDS: PANTOprazole 40 MG TAB PO SCH ×2 (08:46→20:37)
[2023-06-28] MEDS: ZINC SULFATE 220 MG CAPSULE PO SCH (08:46)
[2023-06-28] MEDS: FAMOTIDINE 20 MG TAB PO SCH ×2 (08:47→20:36)
[2023-06-28] MEDS: METOPROLOL SUCC 50MG EXT REL TAB PO SCH (08:47)
[2023-06-28] MEDS: CHOLECALCIFEROL 1,000 UNITS 25 MCG TAB PO SCH ×2 (08:47→20:36)
[2023-06-28] MEDS ORDERED: cefTRIAXone SODIUM 2,000 MG in DEXTROSE 5 % MINI-B 50 ML IV SCH (14:00)
--- NOTE | 2023-06-28 16:20 | Infectious Disease Consult ---
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 acnes Ag, Gram stain +GPR, cx + C. acnes), now s/p R shoulder I&D, retention of implant humeral stem and glenoid baseplate with humeral polyethlene and metal humeral tray and glenoid sphere Exchange, with placement of Stimulan vancomycin antibiotic beads on 06/27. ID is consulted for C. acnes R shoulder PJI. Outpatient workup c/w C. acnes PJI. C. acnes + on 06/15 cx. Will follow 06/27 OR cx. C. acnes are nearly universally susceptible to penicillin, which can be dosed as a daily continuous infusion for ease of dosing. Patient underwent I&D with partial retention of implant, and component exchange. Will recommend to treat with penicillin G for a 6-week course, though consideration can be given to transition to PO after 4 weeks of abx pending evaluation in ID clinic. Recommend ID follow-up and weekly lab monitoring as below. After completion of IV antibiotics, would consider PO suppression for 3 months given partial retention of prosthesis. Amoxicillin, cefadroxil, or doxycycline may be possible options for suppression. Can have susceptibilities sent for multiple PO options, for future reference. 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 Ortho team has already confirmed with the lab to extend the culture hold to 14 days - Please add on C. acnes susceptibilities to doxycycline, minocycline, levofloxacin, Bactrim Plan discussed with hospitalist. Thank you for letting ID participate in the care of this patient. ID will sign off at this time. If questions, please contact the [facility] call center at [phone]. Marion Rivers MD, MHS Infectious Diseases [facility] direct line: [phone] Consultation Information Consultation was provided via telemedicine using two-way real-time interactive telecommunication between the patient and the telemedicine provider. For the duration of the visit, the provider was performing the assessment from a different facility than the patient. This includesuse of bluetooth stethoscope forauscultationperformed by the telepresenter that the telemedicine provider can hear if described in the physical exam. Deputy Chief Magistrate contact information: Please call [facility] Call Center . (Phone Number For Physician Use Only) After establishing a telemedicine visit, patient was: Patient was verified with two unique identifiers, Patient/authorized rep acknowledged consent and understanding and Gave permission to continue telehealth session Time Spent with Patient: Initial => 75 min History of Present Illness Reason for Consultation: R shoulder C. acnes PJI Attending Physician: Paulino Licea MD History of Present Illness Urban Bright is a 68-year-old man with history significant of CAD, RA, HTN, R recent reverse total shoulder arthroplasty 04/18/23, CVA 05/21/23 now on Plavix, and subsequent development of R shoulder pain, found on outpatient workup to have R shoulder PJI (06/15 Synovasure +alpha defensin + Neutrophil elastase, +C. acnes Ag, Gram stain +GPR, cx + C. acnes), now s/p R shoulder I&D, retention of implant humeral stem and glenoid baseplate with humeral polyethlene and metal humeral tray and glenoid sphere Exchange, with placement of Stimulan vancomycin antibiotic beads on 06/27. ID is consulted for C. acnes R shoulder PJI. The patient was initially doing well after his recent reverse total shoulder arthroplasty. However, he developed a stroke 04/2023 and was placed on Plavix. Around 6 weeks post-operatively, he developed acute pain and swelling c/w hemarthrosis, followed by a 1x fever. She underwent evaluation in [place] ([facility]) Per ortho notes, pts ESR 62 and CRP 13.8, US-guided shoulder aspiration showed WBC 49,000 (94% polys), Synovasure +C. acnes Ag +neutrophil elastase, +alpha defensin, and Gram stain + for GPR. I spoke with the ortho team today, and they rechecked cultures from 06/15 which are now growing C. acnes, awaiting susceptibilities The patient has been on cephalexin 500 mg PO QID Q6H, was taking this up until his surgery. No other antibiotics. No fevers, chills, sweats prior to admission. He was admitted to [facility] and is now s/p R shoulder I&D, retention of implant humeral stem and glenoid baseplate with humeral polyethlene and metal humeral tray and glenoid sphere Exchange, with placement of Stimulan vancomycin antibiotic beads on 06/27. Does not take any steroids or immunomodulatory meds. He has hardware in his L5-S 1 spine from 11/1999 and says that he had a back infection requiring IV antibiotics many years ago but no problems recently. Allergies Allergy/AdvReac Type Severity Reaction Status Date / Time duloxetine [From Cymbalta] Allergy Intermediate Hives Verified 06/25/23 08:30 pregabalin [From Lyrica] Allergy Intermediate Hives Verified 06/25/23 08:30 morphine AdvReac Intermediate hallucinate Verified 06/25/23 08:30 and doesn't work Iawunda-XDH-BsM Reductase AdvReac joint ache Verified 06/25/23 08:30 Inhibitor Home Medications Medication Instructions Recorded Confirmed Type cholecalciferol (vitamin D3) 50 50 mcg PO BID 03/29/23 06/27/23 History mcg (2,000 unit) capsule (Vitamin D3) diltiazem HCl 180 mg capsule,24 180 mg PO QAM 03/29/23 06/27/23 History hr,extended release famotidine 20 mg tablet 20 mg PO BID 03/29/23 06/27/23 History magnesium 500 mg tablet 500 mg PO HS 03/29/23 06/27/23 History metoprolol succinate 50 mg 50 mg PO QAM 03/29/23 06/27/23 History tablet,extended release 24 hr olmesartan 20 mg tablet (Benicar) 20 mg PO HS 03/29/23 06/27/23 History pantoprazole 40 mg tablet,delayed 40 mg PO BID 03/29/23 06/27/23 History release ranolazine 500 mg tablet,extended 500 mg PO QAM 03/29/23 06/27/23 History release,12 hr testosterone cypionate 200 mg/mL 1 mg subcut UD 03/29/23 06/27/23 History intramuscular kit oxycodone 5 mg tablet 5 - 10 mg (1 - 2 x 5 mg) PO 04/19/23 06/27/23 Rx .Q4h-6h PRN pain #30 tabs acetaminophen 500 mg tablet 1,000 mg PO Q8H PRN Pain 06/25/23 06/27/23 History (Tylenol Extra Strength) ascorbic acid (vitamin C) 1,000 mg 1,000 mg PO DAILY 06/25/23 06/27/23 History tablet,extended release (Vitamin C ER) cephalexin 500 mg tablet 500 mg PO QID 06/25/23 06/27/23 History clopidogrel 75 mg tablet 75 mg PO UD 06/25/23 06/27/23 History hydrocodone 5 mg-acetaminophen 325 1 tab PO UD PRN Pain 06/25/23 06/27/23 History mg tablet sildenafil 100 mg tablet 100 mg PO DAILY PRN Erectile 06/25/23 06/27/23 History Dysfunction trazodone 50 mg tablet 50 mg PO HS 06/25/23 06/27/23 History zinc 1 tab PO DAILY 06/25/23 06/27/23 History Patient History Medical History (Updated 06/28/23 @ 16:17 by Marion Rivers MD) Stroke 05/21/23 had left sided weakness in the evening, went to [place] on 05/22/23>transfer[facility] to [facility]>his brain/taste buds/mouth are not working together currently not working together and still some eyelid drooping currently; currently on plavix Carotid artery stenosis < 50% stenosis ICAs bilat on 07/2022 carotid doppler CAD (coronary artery disease) s/p stent LAD 2010 Spondylosis Rheumatoid arthritis History of kidney stones Barretts esophagus History of prostate cancer surgery only Hx of renal cell cancer left kidney cyst removed Hx of basal cell carcinoma nose s/p excision GERD (gastroesophageal reflux disease) controlled, stable per pt 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 Waterman; pacemaker is located in pt's left upper chest Hypertension controlled, stable per pt Hyperlipidemia Sleep apnea no device>couldn't tolerate Surgical History History of reverse total replacement of right shoulder joint 04/18/23>currently infected-reason for upcoming sx. History of cardiac catheterization multiple, stent placed to LAD 2010 S/P epidural steroid injection History of back surgery total 4 lumbar surgeries (hardware intact) History of colonoscopy History of esophagogastroduodenoscopy (EGD) H/O shoulder surgery left Kidney cysts left kidney cyst removed +cancer *via lap procedure done October 2022 History of cystoscopy stone removal History of prostatectomy [place] teeth removed Hx of basal cell carcinoma excision nose area H/O nasal septoplasty History of heart artery stent 1 stent placed>2010 @ [facility] Family History Other No family history of adverse response to anesthesia Social History Smoking Status: Never smoker Second Hand Exposure: No; Do You Dip or Chew Tobacco: No; Tobacco Cessation Education Requested by Patient: No Hx Alcohol Use: Yes Alcohol type: wine Hx Substance Use: No Preferred Language: Malay Communication Ability: Effective Superintendent Transportation Required: No Beliefs That Will Affect Care: None Current Living Situation: Spouse Other Information That Helps Us Care for You: No Feels Safe at Home: Yes Safety Concerns: Feels Safe At This Time Assistive Devices: Cane Assistive Devices Comment: reading glasses prn Physical Exam Physical Exam: Exam obtained with aid of in-person telepresenter. General: Well-appearing, no acute distress HEENT: Conjunctivae non-injected, sclerae anicteric, MMM, OP clear. Respirations nonlabored. Abd: Nondistended. Ext: Shoulder in sling. Skin: No rashes or lesions. Neuro: Alert & interactive. Grossly non-focal. Psych: Pleasant, appropriate. Results & Data Vital Signs (Past 12 Hours) Vital Signs Temp Pulse Resp BP Pulse Ox O2 Del Method 06/28/23 11:26 36.5 C 77 18 126/68 94 Room Air 06/28/23 07:21 36.6 C 65 18 136/71 95 Room Air 06/28/23 04:19 36.5 C 69 16 144/73 H 95 Room Air Diagnostic Findings Diagnostics: 06/27/23 OR report Right Shoulder Incision and Drainage, Retention of Implant humeral stem and glenoid baseplate with humeral Polyethlene and metal humeral tray and Glenoid Sphere Exchange, with placement of Stimulan vancomycin antibiotic beads Patient was placed under regional block and general anesthetic and positioned on the operating room table in a 40 degree beachchair position with a towel roll Under the medial border of his right scapula. all extremities were padded. SCDs were placed. Right shoulder exam demonstrated a stable implant with benign incision with no erythema or drainage mild swelling only. Patient had ceftriaxone 1 g IV preop and right shoulder was sterilely prepped and draped with ChloraPrep in usual sterile fashion. An anterior incision was made through his prior scar. Skin was incised sharply through the subcutaneous tissues which showed no infection. The scarred subcutaneous tissue elevated off the fascia. The deltopectoral interval scar was released and the cephalic vein was retracted laterally with the deltoid the pectoralis was retracted medially. Conjoined tendon was identified and retracted medially. No signs of infection were identified until the subscapularis tendon was identified and the suture material which demonstrated failed subscapularis tendon repair with inflammatory tissue around the suture material and some purulent type soft tissue within the joint around the implant consistent with a deep infection. Soft tissue samples were obtained around the implant for culture. The shoulder was dislocated using a bone hook. A tuning fork was used to remove the metal tray of the humerus along with the polyethylene. The membrane interface underlying the humeral tray was sent for culture. Retractors were placed and the retentive screw was loosened and the glenoid sphere extraction device was utilized to remove the glenoid sphere uneventfully. There was some purulent appearing membrane between the glenoid sphere and the baseplate which was cultured as well. At this point multiple liters of antibiotic saline solution with Ancef were utilized with pulsatile lavage. Rongeur was used to debride any material that was suspicious. all of the nonabsorbable suture material was excised. Betadine scrub brush was used to scrub the metallic implants. Further irrigation was performed for a total of 12 L using Ancef for pulsatile lavage solution. All new instruments were utilized after this point. All staff placed on new gowns and gloves and the shoulder was reprepped and draped. Various trials were utilized at this time and the decision was to upsize the glenoid sphere to a 42 mm sphere and continue with a +0 high offset tray and a 42 x 9 reversed insert based on trialing. The trials were removed and the implants were then irrigated with xperience irrigation. Retractors were placed and the 42 x 25 mm glenoid sphere was impacted into position with a good tight fit and the security screw was tightened. Glenoid sphere was assessed for stability. The +0 high offset tray was impacted onto the stem and the 42+9 mm reversed insert was placed. Humerus was reduced to the glenoid sphere. Shoulder was stable through full range of motion. Range of motion was 150 degrees forward elevation 100 degrees abduction external rotation 60 degrees. Further irrigation performed with the xperience. 1 g vancomycin antibiotic beads were placed around the implant deep to the deltoid closure. 2 Hemovac drains were placed deep to the deltopectoral closure. Deltoid and pectoralis were closed with [id number] #1 Vicryl antibiotic resistance sutures. The subcutaneous tissue closed with [id number] 2-0 Vicryl antibiotic resistance suture. The skin was closed with ana. Sterile dressings were applied. Ren ABEEB is left versus any was integral part in all aspects of the procedure. He assisted in prepping draping arm positioning retraction instrument management form the wound closure and will participate in postop care patient as well. Micro Summary: 06/27 BCx x2 NGTD 06/27 R shoulder @1503 g/s: many WBCs; cx pending 06/27 R shoulder @1506 g/s: mod WBCs; cx pending 06/27 R shoulder @1522 g/s: few WBCs; cx pending 06/27 R shoulder @1530 g/s: mod WBCs; cx pending 06/15 (OSH) R shoulder aspiration, Synovasure +alpha defensin + Neutrophil elastase, +C. acnes Ag, Gram stain +GPR, cx + C. 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
--- NOTE | 2023-06-28 16:47 | Communication Note ---
Date of Service: June 28, [address] Rivers this evening, changing abx to Penicillin G 10,000 units IV daily. Discussed w/ pharmacy to change. Dr Licea obtaining PICC line consent, Ren working to send for susceptibilities as discussed by ID for cx from 06/15.
[2023-06-28] MEDS: PENICILLIN GK 3 MU in DEXTROSE 5% 100 ML IV SCH ×2 (18:15→22:12)
[2023-06-28] MEDS: SENNA 8.6 MG TAB PO SCH (20:35)
[2023-06-28] MEDS: LOSARTAN POTASSIUM 50 MG TAB PO SCH (20:36)
[2023-06-28] MEDS: traZODone HCL 50 MG TAB PO SCH (20:37)
[2023-06-28] MEDS: MAGNESIUM OXIDE 400 MG TAB PO SCH (20:37)
[2023-06-29] MEDS: PENICILLIN GK 3 MU in DEXTROSE 5% 100 ML IV SCH ×6 (02:23→22:17)
[2023-06-29] MEDS: ACETAMINOPHEN 500 MG TAB PO SCH ×3 (06:21→21:08)
--- NOTE | 2023-06-29 07:25 | Orthopedic Progress Note ---
Date of Service June 29, 2023 Assessment & Plan (1) Infection of prosthetic total shoulder joint: Plan: Postop day #2 right reverse total shoulder I&D with glenosphere and poly exchange. -Continue IV antibiotics. Preop cultures growing gram-positive rods. Preop cultures growing C acnes. Intraoperative cultures no growth as of yesterday. No shoulder range of motion at this time. Continue with sling immobilization. May do elbow/hand/finger motion, Pendulums. ID consult completed. Recommend 6 weeks of IV antibiotics followed by 3 months of oral antibiotics. Patient switched to penicillin G. ID recommending penicillin G 20,000,000 units continuous infusion daily. PICC line order placed. Once IV antibiotics and PICC line placed patient. Plan on discharge. Plan on likely discharge hopefully tomorrow. Admission and Anticipated Discharge Date Admission Date: June 27, 2023 Subjective Patient is feeling well this morning. Minimal pain. Denies chest pain, shortness breath, nausea/vomiting/diarrhea, fevers or chills. Review of Systems Review of Systems: All systems reviewed & are unremarkable except as noted in Subjective Physical Exam Physical Exam: Right shoulder: Dressing is clean, dry, intact. Fingers are mobile with good nut orchardist strength. Hemovac on suction. Distal neurovascular status and sensation is grossly intact. Results & Data Laboratory Results Lab Results 06/27/23 06/28/23 Range/Units 20:16 05:59 WBC 13.02 H 13.06 H (4.8-10.8) K/ul RBC 5.29 4.91 (4.70-6.10) M/uL Hgb 13.9 L 13.0 L (14.0-18.0) g/dl Hct 44.4 41.1 L (42.0-52.0) % MCV 83.9 83.7 (80.0-100.0) fL MCH 26.3 26.5 (25.0-34.0) pg MCHC 31.3 L 31.6 L (32.0-36.0) g/dL RDW Std Deviation 48.7 H 48.3 H (36.4-46.3) fL RDW Coeff of Adelaida 15.9 H 15.8 H (11.5-14.5) % Plt Count 389 392 (130-400) K/uL MPV 8.9 L 8.7 L (9.4-12.4) fL Immature Gran % (Auto) 0.8 0.8 % Neut % (Auto) 93.3 90.3 % Lymph % (Auto) 5.3 6.7 % [place] % (Auto) 0.4 2.0 % Eos % (Auto) 0.0 0.0 % Baso % (Auto) 0.2 0.2 % Neut # (Auto) 12.14 H 11.80 H (1.40-6.50) K/uL Lymph # (Auto) 0.69 L 0.87 L (1.20-3.40) K/uL [place] # (Auto) 0.05 L 0.26 (0.11-0.59) K/uL Eos # (Auto) 0.00 0.00 (0.00-0.50) K/uL Baso # (Auto) 0.03 0.02 (0.00-0.20) K/uL Immature Gran # (Auto) 0.11 0.11 (0.01-0.20) K/uL RBC Morphology Unremarkable ESR 74 H (0-20) mm/hr Sodium 136 136 (136-145) mmol/L Potassium 4.2 4.7 (3.5-5.1) mmol/L Chloride 102 103 (98-107) mmol/L Carbon Dioxide 25 26 (21-32) mmol/L Anion Gap 9 7 (3-11) BUN 18 21 (6-23) mg/dl Creatinine 1.03 0.94 (0.6-1.4) mg/dl Est Cr Clr Drug Dosing 70.0 76.7 ml/min Est GFR ( Amer) 86.1 96.2 ml/min Est GFR (Non-Af Amer) 74.3 83.0 ml/min BUN/Creatinine Ratio 17.5 22.3 H (10-20) Glucose 198 H 123 H (70-99(Fasting)) mg/dl Calcium 9.0 9.1 (8.6-10.3) mg/dl Total Bilirubin 0.7 (0.2-1.0) mg/dl AST 25 (13-39) U/L ALT 62 H (7-52) U/L Alkaline Phosphatase 86 (34-104) U/L C-Reactive Protein 2.85 H (0-0.5) mg/dl Total Protein 7.0 (6.0-8.3) gm/dl Albumin 3.6 (3.4-5.0) gm/dl Globulin 3.4 (2.5-4.0) gm/dl Albumin/Globulin Ratio 1.1 (0.9-2) Procalcitonin < 0.05 (0-0.5) ng/ml (1) Infection of prosthetic total shoulder joint Encounter type: initial encounter Qualified Code(s): T84.59XA - Infection and inflammatory reaction due to other internal joint prosthesis, initial encounter; Z96.619 - Presence of unspecified artificial shoulder joint
--- NOTE | 2023-06-29 08:41 | Hospitalist Progress Note ---
Date of Service June 29, 2023 Assessment & Plan (1) Infection of prosthetic total shoulder joint: Plan: S/p incision and drainage with poly exchange and placement of vancomycin beads with Dr Licea. EBL 250cc Cefazolin x 2 juan antonio-operatively WBC elevation likely from surgery/infection, afebrile Continues on Ceftriaxone for now Hgb 13.9--> 13.0, acute blood loss anemia from surgery/drain, also dilutional aspect from IVF. Asymptomatic Per ortho notes -- preop cultures growing gram-positive rods. Synovasure microbial ID panel positive for P acnes. Preop Synovasure neutrophil elastase positive. Synovial fluid white count of 49,000 preop * Of note, patient had been on keflex for ~1 week prior to surgery OR cx pending -- GS moderate WBC, no organisms Blood cultures pending ID consulted --Spoke with Dr Rivers evening 06/28, rec changing to PCN G 20 million units*. Discussed w/ pharmacy and ID last evening, ok to provide 3 million q4h while inpatient and plan for continuous infusion w/ 20million units daily x 6 weeks. S he already spoke w/ ortho PA earlier in the day about obtaining additional testing on prior cx from office 06/15. Planning for additional PO abx 3 months following for consideration. To have weekly labs on abx w/ CBC w/ diff, CMP, ESR, CRP. Dr Licea obtained PICC line consent last evening, waiting for line today CM to arrange for home IV abx at dc, possible dc today vs tomorrow WBC elevated but afebrile. Monitor on repeat now on appropriate abx. Remains afebrile, feeling well Remainder of medical plan per primary service (2) Stroke: Plan: Patient with acute ischemic stroke on 05/21/23, treated as [place] -He reports some very mild residual deficit in his voice., also reports some R UE weakness at some points but difficult for exam w/ recent surgery but alert/oriented/no facial droop or deficit elsewhere Plavix resumed 06/28 Of note, patient statin-intolerant (3) CAD (coronary artery disease): Plan: Patient with CAD s/p stent placement in 2010. He denies chest pain Plavix resumed AM 06/28 Continues on metoprolol, olmesartan, ranolazine EKG w/ CP (4) Hypertension: Plan: Stable BP @ 165/68 Continues on metoprolol, olmesartan, diltiazem (5) GERD (gastroesophageal reflux disease): Plan: Chronic. Stable No issues reported Remains on protonix, pepcid Plan Thank you for allowing hospitalist service to participate in the care of Mr Bright. CM provided w/ rx for abx by orthopedics team this morning, PICC line placement pending - discharge timing today vs tomorrow pending PICC line placement/IV abx arrangement -- per primary service Hospitalist will follow peripherally. Please call with any questions/concerns. Admission and Anticipated Discharge Date Admission Date: June 27, 2023 Supervising Physician Co-Signing Physician Notes The patient was not seen by me. The chart was reviewed. Case discussed with ANDRAE Malik. Agree with assessment and plan Subjective patient evaluated this morning, walking in room/doing well. seen by Dr Licea this morning, planning to change dressing/remove drain later. 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 Waiting for PICC placement currently. Discussed possible dc today, however reports ortho provider discussed tomorrow. Discussed will check w/ CM as far as logistics for IV abx at d/c. 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 Will see if needing today vs tomorrow if able to arrange abx for dc for tomorrow without issue. No fever/chills, chest pain,shortness of breath. Pain well controlled. Questions/concern addressed at this time. Physical Exam 2 Physical Exam: General: WD/WN male dressed and ambulating in the room, NAD HEENT: head atraumatic, normocephalic, mmm, trachea midline Resp: CTA, no w/c/r, on room air CV: RRR, no significant mrg, no pitting edema/calf tenderness, pulses palpable GI: +BS, soft/NT : no lozano MSK/Neuro: dressing c/d/i to RIGHT shoulder, fingers mobile, sensation intact, pulses palpable, sling in place no slurred speech/facial droop Psych: AOx3, cooperative and pleasant with exam Skin: no obvious rashes/lesions Results & Data Results & Data Vital Signs (Past 12 Hours) Vital Signs Temp Pulse Resp BP Pulse Ox O2 Del Method 06/29/23 07:57 36.5 C 78 16 165/68 H 97 Room Air Laboratory Results 06/29/23 09:06 06/29/23 09:06 PG Care Time/CCT Total # of Minutes Spent Total Time Spent with Patient: Total time spent is greater than 50% in coordination of care (as documented) at patient's floor/unit and/or counseling patient: Coding Level of Care Code 81100 SUB INP/OBS CARE 2/35MIN Diagnoses Infection of prosthetic total shoulder joint, initial encounter T84.59XA; Z96.619 Encounter type: initial encounter Stroke I63.9 CAD (coronary artery disease) I25.10 Hypertension I10 GERD (gastroesophageal reflux disease) K21.9 (1) Infection of prosthetic total shoulder joint Encounter type: initial encounter Qualified Code(s): T84.59XA - Infection and inflammatory reaction due to other internal joint prosthesis, initial encounter; Z96.619 - Presence of unspecified artificial shoulder joint
[2023-06-29] MEDS: METOPROLOL SUCC 50MG EXT REL TAB PO SCH (08:55)
[2023-06-29] MEDS: DOCUSATE SODIUM 100 MG CAP PO SCH ×2 (08:55→21:06)
[2023-06-29] MEDS: FAMOTIDINE 20 MG TAB PO SCH ×2 (08:55→21:06)
[2023-06-29] MEDS: CHOLECALCIFEROL 1,000 UNITS 25 MCG TAB PO SCH ×2 (08:55→21:08)
[2023-06-29] MEDS: dilTIAZem HCL 180 MG CAPCR PO SCH (08:55)
[2023-06-29] MEDS: ASCORBIC ACID 500 MG TAB PO SCH (08:55)
[2023-06-29] MEDS: MULTIVITAMIN TAB PO SCH (08:56)
[2023-06-29] MEDS: ZINC SULFATE 220 MG CAPSULE PO SCH (08:56)
[2023-06-29] MEDS: PANTOprazole 40 MG TAB PO SCH ×2 (08:56→21:07)
[2023-06-29] MEDS: RANOLAZINE 500 MG ER TAB PO SCH (08:56)
[2023-06-29 09:28] LABS: Basophils # (auto) 0.03 K/uL (0.00-0.20); Basophils % (auto) 0.1 %; Eosinophils # (auto) 0.01 K/uL (0.00-0.50); Hematocrit (blood only) 38.7 % (42.0-52.0); Hemoglobin 12.5 g/dl (14.0-18.0); Immature Granulocytes # (auto) 0.15 K/uL (0.01-0.20); Immature Granulocytes % (auto) 0.7 %; Lymphocytes # (auto) 1.74 K/uL (1.20-3.40); Lymphocytes % (auto) 8.3 %; Mean Corpuscular Hemoglobin 26.6 pg (25.0-34.0); Mean Corpuscular Hgb Conc 32.3 g/dL (32.0-36.0); Mean Corpuscular Volume 82.3 fL (80.0-100.0); Mean Platelet Volume 8.8 fL (9.4-12.4); Monocytes # (auto) 0.52 K/uL (0.11-0.59); Monocytes % (auto) 2.5 %; Neutrophils # (auto) 18.61 K/uL (1.40-6.50); Neutrophils % (auto) 88.4 %; Platelet Count 353 K/uL (130-400); White Blood Count 21.06 K/ul (4.8-10.8)
[2023-06-29 09:40] LABS: BUN Creatinine Ratio 16.3 (10-20); Calcium 9.1 mg/dl (8.6-10.3); Creatinine Clr Calc Pharmacy 73.6 ml/min; Est GFR (African American) 91.4 ml/min; Est GFR (Non-African American) 78.9 ml/min; Potassium 4.1 mmol/L (3.5-5.1)
--- NOTE | 2023-06-29 15:02 | XRay Report ---
XR chest 1V not portable CLINICAL HISTORY: left PICC placement TECHNIQUE: Single frontal radiograph of the chest was obtained. Comparison: Comparison is made to chest radiograph 04/06/2023 FINDINGS: A PICC has been placed, the tip appears well positioned in the internal mammary vein. The cardiomedia stinal silhouette is normal. The lungs are clear. No evidence of pleural effusion or pneumothorax. IMPRESSION: Malpositioning of the PICC tip is above. ACT 112: Negative or not required by law. Electronically signed by: Murphy De La Paz M.D. 06/29/2023 3:01 PM
--- NOTE | 2023-06-29 16:47 | XRay Report ---
XR chest 1V not portable CLINICAL HISTORY: left PICC tip placement TECHNIQUE: Single frontal radiograph of the chest was obtained. Comparison: Comparison is made to chest radiograph 06/29/2023 FINDINGS: A PICC has been placed with the tip at the mid SVC. Stable pacemaker and right shoulder arthroplasty. The cardiomediastinal silhouette is normal. The lungs are clear. No evidence of pleural effusion or pneumothorax. IMPRESSION: Interval placement of a PICC with its tip in satisfactory position. No pneumothorax. ACT 112: Negative or not required by law. Electronically signed by: Murphy De La Paz M.D. 06/29/2023 4:45 PM
[2023-06-29] MEDS: SENNA 8.6 MG TAB PO SCH (21:05)
[2023-06-29] MEDS: LOSARTAN POTASSIUM 50 MG TAB PO SCH (21:06)
[2023-06-29] MEDS: MAGNESIUM OXIDE 400 MG TAB PO SCH (21:07)
[2023-06-29] MEDS: traZODone HCL 50 MG TAB PO SCH (21:08)
[2023-06-29] MEDS ORDERED: Nursing to Pharmacy Communication SCH (23:15)
[2023-06-30] MEDS: PENICILLIN GK 3 MU in DEXTROSE 5% 100 ML IV SCH ×3 (02:03→11:19)
[2023-06-30] MEDS: ACETAMINOPHEN 500 MG TAB PO SCH ×2 (06:30→14:04)
[2023-06-30 07:56] LABS: Basophils # (auto) 0.04 K/uL (0.00-0.20); Basophils % (auto) 0.4 %; Eosinophils # (auto) 0.15 K/uL (0.00-0.50); Eosinophils % (auto) 1.4 %; Hematocrit (blood only) 37.7 % (42.0-52.0); Hemoglobin 12.3 g/dl (14.0-18.0); Immature Granulocytes # (auto) 0.11 K/uL (0.01-0.20); Immature Granulocytes % (auto) 1.1 %; Lymphocytes # (auto) 3.04 K/uL (1.20-3.40); Lymphocytes % (auto) 29.3 %; Mean Corpuscular Hemoglobin 26.7 pg (25.0-34.0); Mean Corpuscular Hgb Conc 32.6 g/dL (32.0-36.0); Mean Platelet Volume 8.9 fL (9.4-12.4); Monocytes # (auto) 0.68 K/uL (0.11-0.59); Monocytes % (auto) 6.6 %; Neutrophils # (auto) 6.35 K/uL (1.40-6.50); Neutrophils % (auto) 61.2 %; Platelet Count 325 K/uL (130-400); RDW Coefficient of Variation 16.4 % (11.5-14.5); RDW Standard Deviation 47.9 fL (36.4-46.3); White Blood Count 10.37 K/ul (4.8-10.8)
[2023-06-30 07:57] LABS: Estimated Average Glucose 131 mg/dl; Hemoglobin A1C 6.2 % (4.5-5.6)
[2023-06-30 08:02] LABS: BUN Creatinine Ratio 14.6 (10-20); Creatinine Clr Calc Pharmacy 75.1 ml/min; Est GFR (African American) 93.8 ml/min; Est GFR (Non-African American) 80.9 ml/min; Magnesium 1.9 mg/dl (1.7-2.4); Potassium 3.9 mmol/L (3.5-5.1)
[2023-06-30] MEDS: RANOLAZINE 500 MG ER TAB PO SCH (08:10)
[2023-06-30] MEDS: CLOPIDOGREL BISULFATE 75 MG TAB PO SCH (08:10)
[2023-06-30] MEDS: METOPROLOL SUCC 50MG EXT REL TAB PO SCH (08:10)
[2023-06-30] MEDS: ZINC SULFATE 220 MG CAPSULE PO SCH (08:10)
[2023-06-30] MEDS: PANTOprazole 40 MG TAB PO SCH (08:11)
[2023-06-30] MEDS: dilTIAZem HCL 180 MG CAPCR PO SCH (08:11)
[2023-06-30] MEDS: ASCORBIC ACID 500 MG TAB PO SCH (08:11)
[2023-06-30] MEDS: MULTIVITAMIN TAB PO SCH (08:11)
[2023-06-30] MEDS: FAMOTIDINE 20 MG TAB PO SCH (08:11)
[2023-06-30] MEDS: CHOLECALCIFEROL 1,000 UNITS 25 MCG TAB PO SCH (08:11)
[2023-06-30] MEDS: DOCUSATE SODIUM 100 MG CAP PO SCH (08:14)
--- NOTE | 2023-06-30 08:17 | Orthopedic Progress Note ---
Date of Service June 30, 2023 Assessment & Plan (1) Infection of prosthetic total shoulder joint: Plan: Postop day #3 right reverse total shoulder I&D with glenosphere and poly exchange. -Continue IV antibiotics. Preop cultures growing gram-positive rods. Preop cultures growing C acnes. Intraoperative cultures no growth after 48 hours. No shoulder range of motion at this time. Continue with sling immobilization. May do elbow/hand/finger motion, Pendulums. ID consult completed. Recommend 6 weeks of IV antibiotics followed by 3 months of oral antibiotics. Patient switched to penicillin G. ID recommending penicillin G 20,000,000 units continuous infusion daily. PICC line order placed and put in by IV team. Discharge plan-plan for discharge to home today. Home health services will be coming today to start patient on continuous IV infusion of the penicillin G. Patient will continue to receive home health services upon discharge. 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 Admission and Anticipated Discharge Date Admission Date: June 27, 2023 Subjective Postop day 3 Patient sitting up at the bedside eating breakfast. No complaints this morning. Pain is controlled. Patient has been ambulating in the hallways without difficulty. He is asking to have a shower before he goes home today. Physical Exam Physical Exam: Incision is clean, dry, and intact. No areas of erythema or drainage noted. Sling is in place. Neurovascular is intact. Results & Data Vital Signs (Past 12 Hours) Vital Signs Temp Pulse Resp BP Pulse Ox O2 Del Method 06/30/23 07:27 37 C 65 18 157/87 H 98 Room Air 06/29/23 21:09 36.5 C 64 16 155/73 H 96 Room Air (1) Infection of prosthetic total shoulder joint Encounter type: initial encounter Qualified Code(s): T84.59XA - Infection and inflammatory reaction due to other internal joint prosthesis, initial encounter; Z96.619 - Presence of unspecified artificial shoulder joint
--- NOTE | 2023-06-30 09:06 | Hospitalist Progress Note ---
Date of Service June 30, 2023 Assessment & Plan (1) Infection of prosthetic total shoulder joint: Plan: S/p incision and drainage with poly exchange and placement of vancomycin beads with Dr Licea. EBL 250cc Cefazolin x 2 juan antonio-operatively WBC elevation likely from surgery/infection, afebrile Continues on Ceftriaxone for now Hgb 13.9--> 13.0, acute blood loss anemia from surgery/drain, also dilutional aspect from IVF. Asymptomatic Per ortho notes -- preop cultures growing gram-positive rods. Synovasure microbial ID panel positive for P acnes. Preop Synovasure neutrophil elastase positive. Synovial fluid white count of 49,000 preop * Of note, patient had been on keflex for ~1 week prior to surgery OR cx pending -- GS moderate WBC, no organisms Blood cultures pending ID consulted --Spoke with Dr Rivers evening 06/28, rec changing to PCN G 20 million units*. Discussed w/ pharmacy and ID last evening, ok to provide 3 million q4h while inpatient and plan for continuous infusion w/ 20million units daily x 6 weeks. S he already spoke w/ ortho PA earlier in the day about obtaining additional testing on prior cx from office 06/15. Planning for additional PO abx 3 months following for consideration. To have weekly labs on abx w/ CBC w/ diff, CMP, ESR, CRP. Dr Licea obtained PICC line consent last evening, waiting for line today CM to arrange for home IV abx at dc, possible dc today vs tomorrow WBC elevated but afebrile. Monitor on repeat now on appropriate abx. Remains afebrile, feeling well Remainder of medical plan per primary service (2) Stroke: Plan: Patient with acute ischemic stroke on 05/21/23, treated as [place] -He reports some very mild residual deficit in his voice., also reports some R UE weakness at some points but difficult for exam w/ recent surgery but alert/oriented/no facial droop or deficit elsewhere Plavix resumed 06/28 Of note, patient statin-intolerant (3) CAD (coronary artery disease): Plan: Patient with CAD s/p stent placement in 2010. He denies chest pain Plavix resumed AM 06/28 Continues on metoprolol, olmesartan, ranolazine EKG w/ CP (4) Hypertension: Plan: Stable BP @ 165/68 Continues on metoprolol, olmesartan, diltiazem (5) GERD (gastroesophageal reflux disease): Plan: Chronic. Stable No issues reported Remains on protonix, pepcid Plan Thank you for allowing hospitalist service to participate in the care of Mr Bright. CM provided w/ rx for abx by orthopedics team this morning, PICC line placement pending - discharge timing today vs tomorrow pending PICC line placement/IV abx arrangement -- per primary service Hospitalist will follow peripherally. Please call with any questions/concerns. Admission and Anticipated Discharge Date Admission Date: June 27, 2023 Results & Data Results & Data Vital Signs (Past 12 Hours) Vital Signs Temp Pulse Resp BP Pulse Ox O2 Del Method 06/30/23 07:27 37 C 65 18 157/87 H 98 Room Air 06/29/23 21:09 36.5 C 64 16 155/73 H 96 Room Air Laboratory Results 06/30/23 07:08 06/30/23 07:08 Diagnostic Findings Chest X-Ray 06/29/23 14:31 XR chest 1V not portable CLINICAL HISTORY: left PICC placement TECHNIQUE: Single frontal radiograph of the chest was obtained. Comparison: Comparison is made to chest radiograph 04/06/2023 FINDINGS: A PICC has been placed, the tip appears well positioned in the internal mammary vein. The cardiomediastinal silhouette is normal. The lungs are clear. No evidence of pleural effusion or pneumothorax. IMPRESSION: Malpositioning of the PICC tip is above. ACT 112: Negative or not required by law. Electronically signed by: Murphy De La Paz M.D. 06/29/2023 3:01 PM Chest X-Ray 06/29/23 16:13 XR chest 1V not portable CLINICAL HISTORY: left PICC tip placement TECHNIQUE: Single frontal radiograph of the chest was obtained. Comparison: Comparison is made to chest radiograph 06/29/2023 FINDINGS: A PICC has been placed with the tip at the mid SVC. Stable pacemaker and right shoulder arthroplasty. The cardiomediastinal silhouette is normal. The lungs are clear. No evidence of pleural effusion or pneumothorax. IMPRESSION: Interval placement of a PICC with its tip in satisfactory position. No pneumothorax. ACT 112: Negative or not required by law. Electronically signed by: Murphy De La Paz M.D. 06/29/2023 4:45 PM PG Care Time/CCT Total # of Minutes Spent Total Time Spent with Patient: Total time spent is greater than 50% in coordination of care (as documented) at patient's floor/unit and/or counseling patient: Coding Diagnoses Infection of prosthetic total shoulder joint, initial encounter T84.59XA; Z96.619 Encounter type: initial encounter Stroke I63.9 CAD (coronary artery disease) I25.10 Hypertension I10 GERD (gastroesophageal reflux disease) K21.9 (1) Infection of prosthetic total shoulder joint Encounter type: initial encounter Qualified Code(s): T84.59XA - Infection and inflammatory reaction due to other internal joint prosthesis, initial encounter; Z96.619 - Presence of unspecified artificial shoulder joint
--- NOTE | 2023-06-30 10:30 | Communication Note ---
Date of Service: June 30, 2023 Stopped by to check in on patient. Doing well. WBC normalized/afebrile. PICC/abx arranged and infusion this afternoon planned with dc after 2/3pm. Questions/concerns addressed. Hospitalist service will sign off at this time. Please call with any questions/concerns.
--- NOTE | 2023-06-30 16:55 | Discharge Summary ---
Date of Service June 30, 2023 Admission HPI Per Admitting Provider 68-year-old male with past medical history significant for CVA, CAD, RA, hypertension who presents with ongoing right shoulder pain. Patient underwent a reverse total shoulder arthroplasty about 6 weeks or so ago. Initially had done well. He then had a stroke and was placed on Plavix. Subsequently he developed increasing right shoulder pain. Workup has revealed a right shoulder infection requiring surgical management. Patient denies headaches, sweats, fevers, chills, double vision, blurred vision, cough, sore throat, dysphagia, chest pain, sob, wheezing, n/v/d/c, numbness, tingling, fatigue, urinary symptoms, mood disorders. ROS positive for right shoulder pain and stiffness. Admission Exam Per Admitting Provider Constitutional: well developed and well nourished; no acute distress Eyes: PERRL, conjunctivae normal, anicteric sclerae ENMT: external ear and nose normal, oropharynx normal Neck: trachea midline, no thyromegaly Respiratory: normal respiratory effort; no respiratory distress Cardiovascular: Rate/Rhythm: regular rate and regular rhythm Musculoskeletal: Right shoulder: Well-healed surgical scar with no erythema or drainage. There is mild to moderate swelling. Mild warmth. Active painful range of motion. Patient with 90 degrees of forward flexion and abduction actively. Has good isometrics with string testing. Skin: no rashes, warm and dry Neurologic: patellar DTR's 2+ bilat, sensation intact Psychiatric: A+Ox3, euthymic affect Principal Diagnosis Right shoulder infection Discharge Exam Incision is clean, dry, and intact. No areas of erythema or drainage noted. Sling is in place. Neurovascular is intact. Discharge Data Allergies Allergy/AdvReac Type Severity Reaction Status Date / Time duloxetine [From Cymbalta] Allergy Intermediate Hives Verified 06/25/23 08:30 pregabalin [From Lyrica] Allergy Intermediate Hives Verified 06/25/23 08:30 morphine AdvReac Intermediate hallucinate Verified 06/25/23 08:30 and doesn't work [id number] Reductase AdvReac joint ache Verified 06/25/23 08:30 Inhibitor Consultations 06/26/23 08:18 Consult Hospitalist Routine 06/27/23 18:25 Consult Infectious Diseases Routine Procedures Performed Operation Date: 06/27/23 15:10 Actual Procedures s Right Shoulder Incision and Drainage Retention of Implant, (Left) - Paulino Licea MD p Polyethlene and Glenoid Sphere Exchange(Left) - Paulino Licea MD Ordered Studies 06/27/23 05:00 US - OR guided needle placemen Routine Hospital Course (1) Infection of prosthetic total shoulder joint: Postop day #3 right reverse total shoulder I&D with glenosphere and poly exchange. -Continue IV antibiotics. Preop cultures growing gram-positive rods. Preop cultures growing C acnes. Intraoperative cultures no growth after 48 hours. No shoulder range of motion at this time. Continue with sling immobilization. May do elbow/hand/finger motion, Pendulums. ID consult completed. Recommend 6 weeks of IV antibiotics followed by 3 months of oral antibiotics. Patient switched to penicillin G. ID recommending penicillin G 20,000,000 units continuous infusion daily. PICC line order placed and put in by IV team. Discharge plan-plan for discharge to home today. Home health services will be coming today to start patient on continuous IV infusion of the penicillin G. Patient will continue to receive home health services upon discharge. 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 Postop day #2 right reverse total shoulder I&D with glenosphere and poly exchange. -Continue IV antibiotics. Preop cultures growing gram-positive rods. Preop cultures growing C acnes. Intraoperative cultures no growth as of yesterday. No shoulder range of motion at this time. Continue with sling immobilization. May do elbow/hand/finger motion, Pendulums. ID consult completed. Recommend 6 weeks of IV antibiotics followed by 3 months of oral antibiotics. Patient switched to penicillin G. ID recommending penicillin G 20,000,000 units continuous infusion daily. PICC line order placed. Once IV antibiotics and PICC line placed patient. Plan on discharge. Plan on likely discharge hopefully tomorrow Postop day #1 right reverse total shoulder I&D with glenosphere and poly exchange. -Continue IV antibiotics. Placed on IV ceftriaxone pending ID recommendations. ID consult placed. Preop cultures growing gram-positive rods. Synovasure microbial ID panel positive for P acnes. Preop Synovasure neutrophil elastase positive. Synovial fluid white count of 49,000 preop. No shoulder range of motion at this time. Continue with sling immobilization. May do elbow/hand/finger motion, pendulums. Patient was placed on Keflex 1 week ago and has been on this prior to surgery. OR cultures are pending Lab Results 06/27/23 06/28/23 06/29/23 Range/Units 20:16 05:59 09:06 WBC 13.02 H 13.06 H 21.06 H (4.8-10.8) K/ul RBC 5.29 4.91 4.70 (4.70-6.10) M/uL Hgb 13.9 L 13.0 L 12.5 L (14.0-18.0) g/dl Hct 44.4 41.1 L 38.7 L (42.0-52.0) % MCV 83.9 83.7 82.3 (80.0-100.0) fL MCH 26.3 26.5 26.6 (25.0-34.0) pg MCHC 31.3 L 31.6 L 32.3 (32.0-36.0) g/dL RDW Std Deviation 48.7 H 48.3 H 48.0 H (36.4-46.3) fL RDW Coeff of Adelaida 15.9 H 15.8 H 16.0 H (11.5-14.5) % Plt Count 389 392 353 (130-400) K/uL MPV 8.9 L 8.7 L 8.8 L (9.4-12.4) fL Immature Gran % (Auto) 0.8 0.8 0.7 % Neut % (Auto) 93.3 90.3 88.4 % Lymph % (Auto) 5.3 6.7 8.3 % [place] % (Auto) 0.4 2.0 2.5 % Eos % (Auto) 0.0 0.0 0.0 % Baso % (Auto) 0.2 0.2 0.1 % Neut # (Auto) 12.14 H 11.80 H 18.61 H (1.40-6.50) K/uL Lymph # (Auto) 0.69 L 0.87 L 1.74 (1.20-3.40) K/uL [place] # (Auto) 0.05 L 0.26 0.52 (0.11-0.59) K/uL Eos # (Auto) 0.00 0.00 0.01 (0.00-0.50) K/uL Baso # (Auto) 0.03 0.02 0.03 (0.00-0.20) K/uL Immature Gran # (Auto) 0.11 0.11 0.15 (0.01-0.20) K/uL RBC Morphology Unremarkable ESR 74 H (0-20) mm/hr Sodium 136 136 137 (136-145) mmol/L Potassium 4.2 4.7 4.1 (3.5-5.1) mmol/L Chloride 102 103 102 (98-107) mmol/L Carbon Dioxide 25 26 27 (21-32) mmol/L Anion Gap 9 7 8 (3-11) BUN 18 21 16 (6-23) mg/dl Creatinine 1.03 0.94 0.98 (0.6-1.4) mg/dl Est Cr Clr Drug Dosing 70.0 76.7 73.6 ml/min Est GFR ( Amer) 86.1 96.2 91.4 ml/min Est GFR (Non-Af Amer) 74.3 83.0 78.9 ml/min BUN/Creatinine Ratio 17.5 22.3 H 16.3 (10-20) Glucose 198 H 123 H 174 H (70-99(Fasting)) mg/dl Estimat Average Glucose mg/dl Hemoglobin A1c (4.5-5.6) % Calcium 9.0 9.1 9.1 (8.6-10.3) mg/dl Magnesium (1.7-2.4) mg/dl Total Bilirubin 0.7 (0.2-1.0) mg/dl AST 25 (13-39) U/L ALT 62 H (7-52) U/L Alkaline Phosphatase 86 (34-104) U/L C-Reactive Protein 2.85 H (0-0.5) mg/dl Total Protein 7.0 (6.0-8.3) gm/dl Albumin 3.6 (3.4-5.0) gm/dl Globulin 3.4 (2.5-4.0) gm/dl Albumin/Globulin Ratio 1.1 (0.9-2) Procalcitonin < 0.05 (0-0.5) ng/ml 06/30/23 Range/Units 07:08 WBC 10.37 D (4.8-10.8) K/ul RBC 4.60 L (4.70-6.10) M/uL Hgb 12.3 L (14.0-18.0) g/dl Hct 37.7 L (42.0-52.0) % MCV 82.0 (80.0-100.0) fL MCH 26.7 (25.0-34.0) pg MCHC 32.6 (32.0-36.0) g/dL RDW Std Deviation 47.9 H (36.4-46.3) fL RDW Coeff of Adelaida 16.4 H (11.5-14.5) % Plt Count 325 (130-400) K/uL MPV 8.9 L (9.4-12.4) fL Immature Gran % (Auto) 1.1 % Neut % (Auto) 61.2 % Lymph % (Auto) 29.3 % [place] % (Auto) 6.6 % Eos % (Auto) 1.4 % Baso % (Auto) 0.4 % Neut # (Auto) 6.35 (1.40-6.50) K/uL Lymph # (Auto) 3.04 (1.20-3.40) K/uL [place] # (Auto) 0.68 H (0.11-0.59) K/uL Eos # (Auto) 0.15 (0.00-0.50) K/uL Baso # (Auto) 0.04 (0.00-0.20) K/uL Immature Gran # (Auto) 0.11 (0.01-0.20) K/uL RBC Morphology ESR (0-20) mm/hr Sodium 139 (136-145) mmol/L Potassium 3.9 (3.5-5.1) mmol/L Chloride 102 (98-107) mmol/L Carbon Dioxide 30 (21-32) mmol/L Anion Gap 7 (3-11) BUN 14 (6-23) mg/dl Creatinine 0.96 (0.6-1.4) mg/dl Est Cr Clr Drug Dosing 75.1 ml/min Est GFR ( Amer) 93.8 ml/min Est GFR (Non-Af Amer) 80.9 ml/min BUN/Creatinine Ratio 14.6 (10-20) Glucose 93 (70-99(Fasting)) mg/dl Estimat Average Glucose 131 mg/dl Hemoglobin A1c 6.2 H (4.5-5.6) % Calcium 9.0 (8.6-10.3) mg/dl Magnesium 1.9 (1.7-2.4) mg/dl Total Bilirubin (0.2-1.0) mg/dl AST (13-39) U/L ALT (7-52) U/L Alkaline Phosphatase (34-104) U/L C-Reactive Protein (0-0.5) mg/dl Total Protein (6.0-8.3) gm/dl Albumin (3.4-5.0) gm/dl Globulin (2.5-4.0) gm/dl Albumin/Globulin Ratio (0.9-2) Procalcitonin (0-0.5) ng/ml Total Time Total Time Spent Total Time Spent (In Minutes): 20 Discharge Plan Discharge Items Patient Disposition: Home - Home Health Services Reason For Visit: Right Shoulder Infection of Total Shoulder Arthrop Discharge Diagnosis: Right shoulder infection Activity: Per Instructions section Non-emergency contact: Surgeon Call non-emergency contact if: you have any medication questions, your pain is not controlled, you have a fever, your temperature is above 101, your wound has increased redness and your wound has increased drainage Follow-up/Referrals: Meme Gxaiola D.O. [Primary Care Provider] - Diet: Regular Addtl Attending Provider Instructions: ACTIVITY RECOMMENDATIONS: SELF CARE INSTRUCTIONS AFTER TOTAL SHOULDER ARTHROPLASTY REVERSE A. You may do daily exercises as taught in physical therapy while in hospital. No lifting with the operative arm. B. You are to wear your sling/immobilizer at all times EXCEPT when performing your daily exercises and for hygiene purposes. C. You may perform dry, daily dressing changes. Please keep your incision covered. You may shower 48 hours after surgery. Do not apply soap or any ointment/lotions directly over incision. Do not soak incision in bath tub/swimming pool. D. You may use ice as needed to operative shoulder. SPECIAL CARE INSTRUCTIONS: VERY IMPORTANT TO READ AND REVIEW A. There are a few signs you need to watch for after you are home. Call [facility] at [phone] if you experience any of the followin. Increased severe shoulder pain. Some pain is expected especially when you exercise. 2. Increased swelling in you shoulder or arm; pain or swelling in either upper extremity. 3. Any fluid drainage from the incision. 4. Shortness of breath or chest pain. B. Please call [facility] at [phone] if you have any questions or concerns about your operation or recovery. C. Call your physician if: 1. Temperature is greater than 101 degrees (F). 2. Pain is not relieved by prescribed pain medications. 3. Increase drainage or redness from incision. 4. Unanswered questions or concerns. FOLLOW UP VISIT: Please call [facility] at [phone] to schedule a follow up appointment with Dr. Licea or his PA in 12-14 days from your surgery date. Stand-Alone Forms: My [facility], Smoking Cessation Medications and DC Order Prescriptions: New acetaminophen [Tylenol Extra Strength] 500 mg Tablet 1,000 mg PO Q8 Qty: 60 0RF oxycodone 5 mg Tablet 5 - 10 mg PO .Q4h-6h MDD 6 PRN (Reason: pain) Qty: 30 0RF Rx Instructions: Ongoing therapy, Dr. Licea supervising penicillin G potassium [Pfizerpen-G] 20 million unit recon soln 3 mmu continuous IV infusion Q4H 42 Days Qty: 10 0RF Rx Instructions: 20 million units continuous IV infusion daily for 6 weeks. Continued diltiazem HCl 180 mg Capsule,Extended Release 24 Hr 180 mg PO QAM metoprolol succinate 50 mg Tablet Extended Release 24 Hr 50 mg PO QAM olmesartan [Benicar] 20 mg Tablet 20 mg PO HS ranolazine 500 mg Tablet Extended Release 12 Hr 500 mg PO QAM cholecalciferol (vitamin D3) [Vitamin D3] 50 mcg (2,000 unit) Capsule 50 mcg PO BID magnesium 500 mg Tablet 500 mg PO HS famotidine 20 mg Tablet 20 mg PO BID pantoprazole 40 mg Tablet,Delayed Release (Dr/Ec) 40 mg PO BID testosterone cypionate 200 mg/mL Kit 1 mg SUBCUT UD Patient Comments: 0.4ml injection on fridays trazodone 50 mg Tablet 50 mg PO HS Vitamin C 1,000 mg Tablet Extended Release 1,000 mg PO DAILY clopidogrel 75 mg Tablet 75 mg PO UD Patient Comments: currently on hold for sx 06/27/23 Rx Instructions: every other day sildenafil 100 mg Tablet 100 mg PO DAILY PRN (Reason: Erectile Dysfunction) Patient Comments: has not used Rx Instructions: administer 30 minutes to 4 hours before activity zinc Tablet,Chewable 1 tab PO DAILY Discontinued oxycodone 5 mg Tablet 5 - 10 mg PO .Q4h-6h MDD 6 PRN (Reason: pain) Qty: 30 0RF Patient Comments: no longer taking Rx Instructions: Ongoing therapy, Dr. Licea supervising hydrocodone-acetaminophen 5-325 mg tablet 1 tab PO UD PRN (Reason: Pain) cephalexin 500 mg Tablet 500 mg PO QID acetaminophen [Tylenol Extra Strength] 500 mg tablet 1,000 mg PO Q8H PRN (Reason: Pain) Discharge Orders: Discharge Order (Routine); Ordered 06/30/23 Ordered By: Cruz Schreiber Admission Data Admit Date/Time: 06/27/23 17:44 Attending Provider: Paulino Licea Admit Provider: Paulino Licea Primary Care Provider: Meme Gaxiola Other Providers: Umair Mclaughlin Sabina M.; Sae Long; Sherly Zimmerman; Gisela Pederson; Doris Matthews; Naida Luna; Thea Hernandez; Matthew Mathis; Zenaida Francisco; Marion Rivers; Umair Zeng; James Haynes; Xu,Belinda Other Interventions: Discharge Summary Assessment (RN) Last Done: 06/30/23 13:29
== END 2023-06-30 15:56 | disposition home health service (06) | DRG 483 ==
LOC: ASU 12:45 → 3E 17:44